=== PATIENT | male | born 1960 | race Caucasian/White ===

== ENCOUNTER 2018-11-08 12:38 | Inpatient (IN) | payer BC, MEDICAID ==
[2018-11-08 13:14] LABS: ABS Basophils 0.1 10^3/ul (0-0.2); ABS Eosinophils 0.3 10^3/ul (0-0.6); ABS Lymphocytes 1.2 10^3/ul (1.0-4.8); ABS Monocytes 1.4 10^3/ul (0-0.8); Eosinophil % 2.8 %; Hematocrit 42 % (42-52); Hemoglobin 14.1 g/dL (14.0-18.0); Lymphocyte % 10.6 %; Mean Corpuscular HGB Conc 34 g/dL (31-36); Mean Corpuscular Hemoglobin 29 pg (27-31); Mean Corpuscular Volume 86 fL (80-94); Mean Platelet Volume 7.8 fL (7.4-10.4); Platelet Count 203 10^3/uL (150-450); Red Blood Count 4.89 10^6 /uL (4.18-5.48); Red Cell Distribution Width 14 % (10-15); White Blood Count 10.9 10^3/uL (3.5-10.8)
[2018-11-08 13:22] LABS: INR 0.86 (0.82-1.09)
--- NOTE | 2018-11-08 13:22 | ED ---
Dizziness - HPI Summary HPI Summary: Pt is a 58 y/o M presenting to the ED with a chief complaint of weakness. He states he has been through a decent amount of stress recently, [place], and he has experienced fatigue and weakness. This is accompanied by indigestion, heartburn, lightheadedness, near syncope, nausea , vomiting, and constipation. He denies urinary sx. Sitting up alleviates sx. - History Of Current Complaint Chief Complaint: EDChestPainROMI Stated Complaint: "VOMITING/DIZZINESS PER PT" Time Seen by Provider: 11/08/18 12:51 Hx Obtained From: Patient Onset/Duration: Still Present, Gradually Timing: Weeks Severity Initially: Moderate Severity Currently: Moderate Character: Lightheaded, Weak Aggravating Factor(s): Nothing Alleviating Factor(s): Other - sitting up Associated Signs And Symptoms: Positive: Nausea, Vomiting - Allergies/Home Medications Allergies/Adverse Reactions: Allergies Allergy/AdvReac Type Severity Reaction Status Date / Time No Known Allergies Allergy Verified 11/08/18 12:48 Home Medications: Home Medications Aspirin [Aspirin EC] 81 mg PO DAILY 11/08/18 [History Confirmed 11/08/18] Lisinopril 40 mg PO DAILY 11/08/18 [History Confirmed 11/08/18] amLODIPine TAB* [Norvasc 5 mg TAB*] 10 mg PO DAILY 11/08/18 [History Confirmed 11/08/18] hydrALAZINE TAB* [Apresoline TAB*] 12.5 mg PO DAILY 11/08/18 [History Confirmed 11/08/18] metFORMIN* [Glucophage 500 MG TAB *] 1,000 mg PO DAILY 11/08/18 [History Confirmed 11/08/18] PMH/Surg Hx/FS Hx/Imm Hx Previously Healthy: Yes Endocrine/Hematology History: Reports: Hx Diabetes Cardiovascular History: Reports: Hx Hypertension Infectious Disease History: No Infectious Disease History: Denies: Traveled Outside the [place] in Last 30 Days - Family History Known Family History: Positive: Diabetes - maternal Negative: Cardiac Disease, Hypertension - Social History Alcohol Use: Occasionally Hx Substance Use: Yes Substance Use Type: Reports: Marijuana Hx Tobacco Use: Yes Smoking Status (MU): Former Smoker Review of Systems Positive: Fatigue Positive: Vomiting, Nausea, Other - constipation, indigestion Positive: no symptoms reported Neurological: Other - lightheadedness Positive: Weakness, Syncope - near syncope All Other Systems Reviewed And Are Negative: Yes Physical Exam - Summary Physical Exam Summary: Appearance: The patient is well-nourished in no acute distress and in no acute pain. Skin: The skin is warm and dry and skin color reflects adequate perfusion. HEENT: The head is normocephalic and atraumatic. The pupils are equal and reactive. The conjunctivae are clear and without drainage. Nares are patent and without drainage. Mouth reveals moist mucous membranes and the throat is without erythema and exudate. The external ears are intact. The ear canals are patent and without drainage. The tympanic membranes are intact. Neck: The neck is supple with full range of motion and non-tender. There are no carotid bruits. There is no neck vein distension. Respiratory: Chest is non-tender. Lungs are clear to auscultation and breath sounds are symmetrical and equal. Cardiovascular: Heart is regular rate and rhythm. There is no murmur or rub auscultated. There is no peripheral edema and pulses are symmetrical and equal. Abdomen: The abdomen is soft and there is mild RUQ tenderness. There are normal bowel sounds heard in all four quadrants and there is no organomegaly palpated. Musculoskeletal: There is no back tenderness noted. Extremities are non-tender with full range of motion. There is good capillary refill. There is no peripheral edema or calf tenderness elicited. Neurological: Patient is alert and oriented to person, place and time. The patient has symmetrical motor strength in all four extremities. Cranial nerves are grossly intact. Deep tendon reflexes are symmetrical and equal in all four extremities. Psychiatric: The patient has an appropriate affect and does not exhibit any anxiety or depression. Triage Information Reviewed: Yes Vital Signs On Initial Exam: Initial Vitals Temp Pulse Resp BP Pulse Ox 98.8 F 88 16 129/89 98 11/08/18 12:40 11/08/18 12:40 11/08/18 12:40 11/08/18 12:40 11/08/18 12:40 Vital Signs Reviewed: Yes Diagnostics - Vital Signs Vital Signs Temp Pulse Resp BP Pulse Ox 11/08/18 12:40 98.8 F 88 16 129/89 98 - Laboratory Lab Results: Lab Results 11/08/18 Range/Units 13:05 WBC 10.9 H (3.5-10.8) 10^3/uL RBC 4.89 (4.18-5.48) 10^6 /uL Hgb 14.1 (14.0-18.0) g/dL Hct 42 (42-52) % MCV 86 (80-94) fL MCH 29 (27-31) pg MCHC 34 (31-36) g/dL RDW 14 (10-15) % Plt Count 203 (150-450) 10^3/uL MPV 7.8 (7.4-10.4) fL Neut % (Auto) 73.0 % Lymph % (Auto) 10.6 % [place] % (Auto) 12.8 % Eos % (Auto) 2.8 % Baso % (Auto) 0.8 % Absolute Neuts (auto) 8.0 H (1.5-7.7) 10^3/ul Absolute Lymphs (auto) 1.2 (1.0-4.8) 10^3/ul Absolute Monos (auto) 1.4 H (0-0.8) 10^3/ul Absolute Eos (auto) 0.3 (0-0.6) 10^3/ul Absolute Basos (auto) 0.1 (0-0.2) 10^3/ul Absolute Nucleated RBC 0.0 10^3/ul Nucleated RBC % 0.0 Result Diagrams: 11/08/18 13:05 11/08/18 13:05 Lab Statement: Any lab studies that have been ordered have been reviewed, and results considered in the medical decision making process. - Radiology CXR Radiology Interpretation Completed By: Radiologist Summary of Radiographic Findings: No acute cardiopulmonary process by radiograph. ED physician has reviewed this report. Dizzy Course/Dx - Course Course Of Treatment: Mr. Michaud is primarily complaining of severe fatigue. He is interfering with any activity and has worsened in the last 24 hours. He was nontoxic in appearance with stable vitals. He was found to have acute renal failure. He had previously been seen for the first time by Dr. Li and was found to have some protein in his urine. He had been referred to a cost manager which she has not seen yet. I spoke with the hospitalist about admission. - Diagnoses Provider Diagnoses: Acute renal failure - Provider Notifications Discussed Care Of Patient With: Ez Berrios Time Discussed With Above Provider: 16:00 Instructed by Provider To: Admit As Inpatient Discharge - Sign-Out/Discharge Documenting (check all that apply): Patient Departure - Discharge Plan Condition: Stable Disposition: ADMITTED TO [facility] - Billing Disposition and Condition Condition: STABLE Disposition: Admitted to [facility] - Attestation Statements Document Initiated by Chrisibe: Yes Documenting Scribe: Estefania Raza Provider For Whom Chrisibe is Documenting (Include Credential): John Piedra MD. Scribe Attestation: Estefania Worerll, donovaned for John Piedra MD. on 11/08/18 at 1822. Scribe Documentation Reviewed: Yes Provider Attestation: The documentation as recorded by the Estefania rodrigez accurately reflects the service I personally performed and the decisions made by , John Piedra MD. Status of Scribe Document: Viewed Consult Consult: 1600 - Dr. Berrios has accepted the pt to [facility].
[2018-11-08 13:32] LABS: Albumin 4.5 g/dL (3.2-5.2); Albumin/Globulin Ratio 1.7 (1-3); BUN/Creatinine Ratio 9.7 (8-20); Calcium 10.4 mg/dL (8.6-10.3); EGFR African American 21.9 (>60); EGFR Non-African American 18.1 (>60); Globulin 2.6 g/dL (2-4); Potassium 3.8 mmol/L (3.5-5.0); Total Bilirubin 0.9 mg/dL (0.2-1.0); Total Protein 7.1 g/dL (6.4-8.9)
[2018-11-08 13:34] LABS: Troponin I 0.01 ng/mL (<0.04)
[2018-11-08 13:41] LABS: C Reactive Protein 7.93 mg/L (<8.01)
[2018-11-08 13:54] LABS: Urine Appearance Cloudy; Urine Bacteria 1+ (Absent); Urine Bilirubin Negative (Negative); Urine Blood 2+ (Negative); Urine Color Yellow; Urine Glucose 3+(>=500 mg/dL) (Negative); Urine Ketones Negative (Negative); Urine Nitrite Negative (Negative); Urine Protein 2+(100 mg/dL) (Negative); Urine Red Blood Cell 1+(3-5/hpf) (Absent); Urine Squamous Epithelial Cell Present (Absent); Urine Urobilinogen Negative (Negative); Urine White Blood Cell Trace(0-5/hpf) (Absent)
[2018-11-08] MEDS ORDERED: Ondansetron INJ* 2 MG/ML VIAL IV ONE (14:02)
[2018-11-08] MEDS ORDERED: NS 0.9% 1000 ML** 1,000 ML IV.FLUID IV ONE (16:00)
[2018-11-08] MEDS ORDERED: Pantoprazole IV* 40 MG IV SCH (16:00)
[2018-11-08] MEDS ORDERED: Dextrose 50% Syringe 50 ML* 25 GM/50 ML SYRINGE IV PUSH PRN (16:01)
--- NOTE | 2018-11-08 16:12 | ADMNOTE ---
Subjective Date of Service: 11/08/18 Interval History: ADMISSION HISTORY AND PHYSICAL EXAM: Allergies Allergy/AdvReac Type Severity Reaction Status Date / Time No Known Allergies Allergy Verified 11/08/18 12:48 Home Medications Medication Instructions Recorded Confirmed Type Aspirin [Aspirin EC] 81 mg PO DAILY 11/08/18 11/08/18 History Lisinopril 40 mg PO DAILY 11/08/18 11/08/18 History amLODIPine TAB* [Norvasc 5 mg TAB*] 10 mg PO DAILY 11/08/18 11/08/18 History hydrALAZINE TAB* [Apresoline TAB*] 12.5 mg PO DAILY 11/08/18 11/08/18 History metFORMIN* [Glucophage 500 MG TAB 1,000 mg PO DAILY 11/08/18 11/08/18 History *] HPI: The patient states he has nausea off and on for ? months or longer. Today he had emesis x 5 in 1 occasion. He did not take any of his meds this AM because he was too sick. No abd pain. C/O weakness and fatigue. Pain R lower lateral rib for several days, no recalled significant trauma. Family History: Findings - unremarkable. Social History: Findings - Smoker, no alcohol abuse. Lives with his and the younger of his 2 children. Unemployed. is his SDM. Past Medical History: Findings - Back surgery x 2, eye muscle surgery. DM x 20 yrs Review of Systems - Measurements Intake and Output: Intake and Output Last 24 Hours 11/06/18 11/07/18 11/08/18 11/09/18 06:59 06:59 06:59 06:59 Weight 190 lb - Review of Systems Constitutional Symptoms: Negative: Weight Gain, Weight Loss, Weakness, Fatigue, Fever, Night Sweats, Unexplained Falls, Other Dermatology: Positive: Normal HEENT: Positive: Normal Eyes: Positive: Normal Thyroid: Positive: Normal Pulmonary: Positive: Normal Cardiology: Positive: Normal Gastroenterology: Positive: Nausea, Vomiting Genital - Urinary: Positive: Normal Genitourinary - Male: Negative: Prostatism, Erectile Dysfunction, Family Hx of Prostate Cancer, Other Musculoskeletal: Positive: Low Back Pain Endocrinology: Positive: Diabetes Mellitus Hematologic/Lymphatic: Negative: Anemia, Easy Bruising, Hx Leukemia, Hx Lymphoma, Use of Anticoagulant, Use of Antiplatelet Drugs, Other Neurology: Positive: Normal Psychiatry: Positive: Normal Allergic/Immunologic: Negative: Hx Anaphylaxis, Hx Angioedema, Hx Environmental, Hx Seasonal, Asthma, Hx HIV, Immunocompromise, Swollen Glands LymphNodes, Other Objective Active Medications: Amlodipine Besylate (Norvasc Tab*) 10 mg PO DAILY [facility] Dextrose (D50w Syringe 50 Ml*) 12.5 gm IV PUSH .FOR FS < 60 - SS PRN PRN Reason: FS < 60 Sodium Chloride (Ns 0.9% 1000 Ml) 1,000 mls @ 125 mls/hr IV PER RATE [facility] Insulin Human Lispro (Humalog*) 0 units SUBCUT ACHS [facility]; Protocol Ondansetron HCl (Zofran Inj*) 4 mg IV Q4H PRN PRN Reason: NAUSEA Pantoprazole Sodium (Protonix Iv*) 40 mg IV Q12H [facility] Polyethylene Glycol/Electrolytes (Miralax*) 17 gm PO 0800,2100 [facility] Vital Signs - 8 hr 11/08/18 11/08/18 11/08/18 12:40 13:02 13:03 Temperature 98.8 F Pulse Rate 88 70 Respiratory 16 30 13 Rate Blood Pressure 129/89 160/93 (mmHg) O2 Sat by Pulse 98 100 Oximetry 11/08/18 11/08/18 11/08/18 13:33 14:00 14:03 Temperature Pulse Rate 65 70 Respiratory 19 22 36 Rate Blood Pressure 131/78 155/81 (mmHg) O2 Sat by Pulse 100 100 Oximetry 11/08/18 14:39 Temperature Pulse Rate 60 Respiratory 11 Rate Blood Pressure 135/71 (mmHg) O2 Sat by Pulse 98 Oximetry Oxygen Devices in Use Now: None Appearance: Alert, supine on ED stretcher. In good spirits. Looks comfortable. Eyes: No Scleral Icterus Respiratory: Symmetrical Chest Expansion and Respiratory Effort, Clear to Auscultation, Clear to Percussion, - - Very tender R lower lateral ribs. Cardiovascular: NL Sounds; No Murmurs; No JVD, RRR, No Edema, - Abdominal: NL Sounds; No Tenderness; No Distention, No Hepatosplenomegaly, - Extremities: No Edema, No Clubbing, Cyanosis, - Skin: No Rash or Ulcers, No Nodules or Sclerosis, - Neurological: Alert and Oriented x 3, NL Sensation Result Diagrams: 11/08/18 13:05 11/08/18 13:05 Additional Lab and Data: Lab Results 11/08/18 Range/Units 13:05 WBC 10.9 H (3.5-10.8) 10^3/uL RBC 4.89 (4.18-5.48) 10^6 /uL Hgb 14.1 (14.0-18.0) g/dL Hct 42 (42-52) % MCV 86 (80-94) fL MCH 29 (27-31) pg MCHC 34 (31-36) g/dL RDW 14 (10-15) % Plt Count 203 (150-450) 10^3/uL MPV 7.8 (7.4-10.4) fL Neut % (Auto) 73.0 % Lymph % (Auto) 10.6 % Jerome % (Auto) 12.8 % Eos % (Auto) 2.8 % Baso % (Auto) 0.8 % Absolute Neuts (auto) 8.0 H (1.5-7.7) 10^3/ul Absolute Lymphs (auto) 1.2 (1.0-4.8) 10^3/ul Absolute Monos (auto) 1.4 H (0-0.8) 10^3/ul Absolute Eos (auto) 0.3 (0-0.6) 10^3/ul Absolute Basos (auto) 0.1 (0-0.2) 10^3/ul Absolute Nucleated RBC 0.0 10^3/ul Nucleated RBC % 0.0 Assess/Plan/Problems-Billing Assessment: - Patient Problems (1) Acute renal failure Current Visit: Yes Status: Acute Comment: ? related to dehydration. Pt denies any NSAID use other red 1 ASA daily. Urine creat/K+/Na+ levels. IV fluids, repeat BMP 11/09. US kidneys. Verbal report that bladder urine volume about 20 ml. (2) HTN (hypertension) Current Visit: Yes Status: Acute Code(s): I10 - ESSENTIAL (PRIMARY) HYPERTENSION SNOMED Code(s): 49304723 Comment: Hold lisinopril and hydralazine, resume amlodipine 11/09. (3) Tobacco use Current Visit: Yes Status: Acute Code(s): Z72.0 - TOBACCO USE SNOMED Code( s): 290913427 Comment: Pt advised to quit smoking and avoid second hand smoke. He declined NRT 11/08. (4) Diabetes Current Visit: Yes Status: Acute Code(s): E11.9 - TYPE 2 DIABETES MELLITUS WITHOUT COMPLICATIONS SNOMED Code(s): 40637829 Comment: Hold metformin. Lispro by achs. A1C ordered for 11/09. (5) Nausea and vomiting Current Visit: Yes Status: Acute Code(s): R11.2 - NAUSEA WITH VOMITING, UNSPECIFIED SNOMED Code(s): 10873301 Comment: IV PPI ordered. Discussed with Dr. Roy. Consult/? endoscopy 11/09. NPO after MN.
--- NOTE | 2018-11-08 16:23 | PN ---
Subjective Date of Service: 11/08/18 Interval History: See admission note. Family History: Findings - unremarkable. Social History: Findings - Smoker, no alcohol abuse. Lives with his and the younger of his 2 children. Unemployed. is his SDM. Past Medical History: Findings - Back surgery x 2, eye muscle surgery. DM x 20 yrs Objective Active Medications: Amlodipine Besylate (Norvasc Tab*) 10 mg PO DAILY [facility] Dextrose (D50w Syringe 50 Ml*) 12.5 gm IV PUSH .FOR FS < 60 - SS PRN PRN Reason: FS < 60 Sodium Chloride (Ns 0.9% 1000 Ml) 1,000 mls @ 125 mls/hr IV PER RATE [facility] Insulin Human Lispro (Humalog*) 0 units SUBCUT ACHS [facility]; Protocol Ondansetron HCl (Zofran Inj*) 4 mg IV Q4H PRN PRN Reason: NAUSEA Pantoprazole Sodium (Protonix Iv*) 40 mg IV Q12H [facility] Polyethylene Glycol/Electrolytes (Miralax*) 17 gm PO 0800,2100 [facility] Vital Signs - 8 hr 11/08/18 11/08/18 11/08/18 12:40 13:02 13:03 Temperature 98.8 F Pulse Rate 88 70 Respiratory 16 30 13 Rate Blood Pressure 129/89 160/93 (mmHg) O2 Sat by Pulse 98 100 Oximetry 11/08/18 11/08/18 11/08/18 13:33 14:00 14:03 Temperature Pulse Rate 65 70 Respiratory 19 22 36 Rate Blood Pressure 131/78 155/81 (mmHg) O2 Sat by Pulse 100 100 Oximetry 11/08/18 14:39 Temperature Pulse Rate 60 Respiratory 11 Rate Blood Pressure 135/71 (mmHg) O2 Sat by Pulse 98 Oximetry Oxygen Devices in Use Now: None Result Diagrams: 11/08/18 13:05 11/08/18 13:05 Additional Lab and Data: Lab Results 11/08/18 Range/Units 13:05 WBC 10.9 H (3.5-10.8) 10^3/uL RBC 4.89 (4.18-5.48) 10^6 /uL Hgb 14.1 (14.0-18.0) g/dL Hct 42 (42-52) % MCV 86 (80-94) fL MCH 29 (27-31) pg MCHC 34 (31-36) g/dL RDW 14 (10-15) % Plt Count 203 (150-450) 10^3/uL MPV 7.8 (7.4-10.4) fL Neut % (Auto) 73.0 % Lymph % (Auto) 10.6 % [place] % (Auto) 12.8 % Eos % (Auto) 2.8 % Baso % (Auto) 0.8 % Absolute Neuts (auto) 8.0 H (1.5-7.7) 10^3/ul Absolute Lymphs (auto) 1.2 (1.0-4.8) 10^3/ul Absolute Monos (auto) 1.4 H (0-0.8) 10^3/ul Absolute Eos (auto) 0.3 (0-0.6) 10^3/ul Absolute Basos (auto) 0.1 (0-0.2) 10^3/ul Absolute Nucleated RBC 0.0 10^3/ul Nucleated RBC % 0.0 Assess/Plan/Problems-Billing Assessment: - Patient Problems (1) Acute renal failure Current Visit: Yes Status: Acute Comment: ? related to dehydration. Pt denies any NSAID use other red 1 ASA daily. Urine creat/K+/Na+ levels. IV fluids, repeat BMP 11/09. US kidneys. Verbal report that bladder urine volume about 20 ml. (2) HTN (hypertension) Current Visit: Yes Status: Acute Code(s): I10 - ESSENTIAL (PRIMARY) HYPERTENSION SNOMED Code(s): 67565681 Comment: Hold lisinopril and hydralazine, resume amlodipine 11/09. (3) Tobacco use Current Visit: Yes Status: Acute Code(s): Z72.0 - TOBACCO USE SNOMED Code( s): 212242089 Comment: Pt advised to quit smoking and avoid second hand smoke. He declined NRT 11/08. (4) Diabetes Current Visit: Yes Status: Acute Code(s): E11.9 - TYPE 2 DIABETES MELLITUS WITHOUT COMPLICATIONS SNOMED Code(s): 99879432 Comment: Hold metformin. Lispro by achs. A1C ordered for 11/09. (5) Nausea and vomiting Current Visit: Yes Status: Acute Code(s): R11.2 - NAUSEA WITH VOMITING, UNSPECIFIED SNOMED Code(s): 20644544 Comment: IV PPI ordered. Discussed with Dr. Roy. Consult/? endoscopy 11/09. NPO after MN. (6) Right rib fracture Current Visit: Yes Status: Acute Code(s): S22.31XA - FRACTURE OF ONE RIB, RIGHT SIDE, INIT FOR CLOS FX SNOMED Code(s): 58913300 Comment: Likely due to coughing spasm. Note high vit D level. Pt not requesting analgesics, likes to avoid them.
[2018-11-08] MEDS: Ondansetron INJ* 2 MG/ML VIAL IV PRN (16:58)
[2018-11-08] MEDS: Polyethylene Glycol 3350* 17 GM PACKET PO SCH ×2 (17:49→20:06)
[2018-11-08] MEDS: Insulin LISPRO* 1 UNITS UNIT SUBCUT SCH ×2 (17:57→20:06)
[2018-11-08] MEDS: NS 0.9% 1000 ML** 1,000 ML IV SCH (19:25)
[2018-11-08] MEDS: Pantoprazole IV* 40 MG IV SCH (20:06)
[2018-11-09] MEDS: NS 0.9% 1000 ML** 1,000 ML IV SCH ×3 (03:40→18:40)
[2018-11-09 05:39] LABS: BUN/Creatinine Ratio 8.6 (8-20); Calcium 9.8 mg/dL (8.6-10.3); EGFR African American 14.5 (>60); Potassium 3.7 mmol/L (3.5-5.0)
[2018-11-09] MEDS: Insulin LISPRO* 1 UNITS UNIT SUBCUT SCH ×4 (08:19→20:37)
[2018-11-09] MEDS: Polyethylene Glycol 3350* 17 GM PACKET PO SCH ×2 (08:19→20:27)
[2018-11-09] MEDS: amLODIPine TAB* 5 MG PO SCH (09:07)
[2018-11-09] MEDS: Pantoprazole IV* 40 MG IV SCH ×2 (09:08→20:25)
[2018-11-09 09:50] LABS: Urine Potassium Concentration 13.8 mmol/L
[2018-11-09 09:58] LABS: Urine Creatinine Concentration 63.05 mg/dL
[2018-11-09] MEDS: Nicotine PATCH 21 MG/24 HR* PATCH TRANSDERM SCH (11:31)
--- NOTE | 2018-11-09 16:11 | PN ---
Subjective Date of Service: 11/09/18 Interval History: Mr. Michaud is feeling okay this morning. He is upset that he cannot eat. He is urinating well. C/o generalized weakness which has been going on for months ( maybe 6 months?). He denies CP, SOB, N/V. No concerns from nursing, though RN did call to request a nicotine patch order. Family History: Unchanged from Admission Social History: Unchanged from Admission Past Medical History: Unchanged from Admission Objective Active Medications: Amlodipine Besylate (Norvasc Tab*) 10 mg PO DAILY [facility] Dextrose (D50w Syringe 50 Ml*) 12.5 gm IV PUSH .FOR FS < 60 - SS PRN FS < 60 Sodium Chloride (Ns 0.9% 1000 Ml) 1,000 mls @ 125 mls/hr IV PER RATE [facility] Insulin Human Lispro (Humalog*) 0 units SUBCUT ACHS [facility]; Protocol Nicotine (Nicotine Patch 21 Mg/24 Hr*) 1 patch TRANSDERM DAILY@0800 [facility] Ondansetron HCl (Zofran Inj*) 4 mg IV Q4H PRN NAUSEA Pantoprazole Sodium (Protonix Iv*) 40 mg IV 0800,2000 [facility] Polyethylene Glycol/Electrolytes (Miralax*) 17 gm PO 0800,2100 [facility] Vital Signs - 8 hr 11/09/18 11/09/18 11:13 15:03 Temperature 98.2 F 98.5 F Pulse Rate 61 60 Respiratory 18 18 Rate Blood Pressure 141/65 145/63 (mmHg) O2 Sat by Pulse 100 100 Oximetry Oxygen Devices in Use Now: None Appearance: Middle-aged male laying in bed in NAD Eyes: No Scleral Icterus Ears/Nose/Mouth/Throat: Mucous Membranes Moist Neck: NL Appearance and Movements; NL JVP, Trachea Midline Respiratory: Symmetrical Chest Expansion and Respiratory Effort, Clear to Auscultation Cardiovascular: NL Sounds; No Murmurs; No JVD, RRR Abdominal: NL Sounds; No Tenderness; No Distention Extremities: No Edema Neurological: Alert and Oriented x 3 - Poor historian Lines/Tubes/Other Access: Clean, Dry and Intact Peripheral IV Nutrition: Taking PO's Result Diagrams: 11/08/18 13:05 11/09/18 05:02 Assess/Plan/Problems-Billing Assessment: Mr. Michaud is a 58 yo M with PMH of HTN and DM2 who presented to the ED with c/o N/V and was found to have ARF. - Patient Problems (1) Acute renal failure Comment: - Creatinine 3.5 on admission, now up to 4.99 today but still producing sufficient urine - Possibly secondary to hypovolemia - FENa 2.2% indicating intra-renal source - Appreciate Nephrology consult; suspects this is secondary to hypovolemia and recommends continuing current treatment - Continue IVF (2) Nausea and vomiting Code(s): R11.2 - NAUSEA WITH VOMITING, UNSPECIFIED Comment: - Unclear how long this has been going on; patient reports months of N/V, but states it has gotten much worse in the last 1-2 weeks - Appreciate GI consult; NPO for possible EGD - Continue pantoprazole, Zofran (3) Right rib fracture Code(s): S22.31XA - FRACTURE OF ONE RIB, RIGHT SIDE, INIT FOR CLOS FX Comment : - Likely due to coughing spasm - Continue Tylenol (4) Diabetes Code(s): E11.9 - TYPE 2 DIABETES MELLITUS WITHOUT COMPLICATIONS Comment: - A1c 7.8% - Hold metformin - Continue Lispro SS (5) HTN (hypertension) Code(s): I10 - ESSENTIAL (PRIMARY) HYPERTENSION Comment: - Normotensive, SBP 110-140s - Hold lisinopril, hydralazine - Continue amlodipine (6) Tobacco use Code(s): Z72.0 - TOBACCO USE Comment: - Encourage cessation - Continue nicotine patch (7) DVT prophylaxis Code(s): Z29.9 - ENCOUNTER FOR PROPHYLACTIC MEASURES, UNSPECIFIED Comment: - Ambulation (8) Full code status Code(s): Z78.9 - OTHER SPECIFIED HEALTH STATUS Comment: Status and Disposition: Inpatient. Anticipate d/c home when medically stable. Attending: Vani Shabazz
[2018-11-09] MEDS ORDERED: Acetaminophen TAB* 325 MG PO PRN (16:18)
--- NOTE | 2018-11-09 18:09 | CONS ---
CC: Dr. Alexandra * CONSULTATION REPORT: DATE OF CONSULT: 11/09/18 REQUESTING PHYSICIAN: Dr. Berrios. INDICATION: Nausea and vomiting. NARRATIVE: Mr. Michaud is a very pleasant 58-year-old gentleman who was admitted to the hospital yesterday. He states that he was feeling extremely weak, really could not ambulate very far without difficulty, was feeling like he was going to pass out and decided to present to the emergency room. In the emergency room, he was found to be in acute renal failure that is being worked up as we speak. Additionally, he states that he has been experiencing nausea and vomiting for many months. He states that he usually vomits partially digested food, for instance. Friday night, he ate a bowl of rice at around 9 p.m. and then somewhere between 4 and 5 a.m., he awoke and vomited a large portion of the rice. He denies any blood in the vomitus. He rarely has abdominal pain. He does note that constipation worsens his nausea and vomiting. If his colon is emptied, he has much less nausea and vomiting. He is up-to-date on colonoscopy. He tells me he just had a colonoscopy within the past year, a few polyps were found. No family history of colorectal cancer or upper GI malignancies. No unintentional weight loss. No headaches. PAST MEDICAL HISTORY: Significant for chronic back pain, diabetes, hypertension. PAST SURGICAL HISTORY: Includes back surgery x2, eye surgery. MEDICATIONS: Include: 1. Aspirin. 2. Lisinopril. 3. Amlodipine. 4. Hydralazine. 5. Metformin. ALLERGIES: No known drug allergies. SOCIAL HISTORY: He rarely drinks alcohol. He is a smoker; I counseled him against this. REVIEW OF SYSTEMS: Twelve systems were reviewed and other than that mentioned in the HPI were unremarkable. PHYSICAL EXAM: Temperature is 98.5, blood pressure is 145/63, O2 sat is 100%, respiratory rate of 18, pulse is 60. General: Well-appearing male, in no apparent distress, alert, oriented, pleasant, fluent. HEENT: Mucous membranes are moist, without lesions, ulcers or exudate. Neck is supple. Trachea is midline. Head is normocephalic, atraumatic. Heart: Regular rate and rhythm. No murmurs, rubs or gallops. Lungs: Clear to auscultation bilaterally. No wheezes, rales or rhonchi. Abdomen: Positive bowel sounds; however, hypoactive , soft, nontender, nondistended. No hepatosplenomegaly, masses, rebound, or guarding. Skin is warm and dry. DIAGNOSTIC STUDIES/LAB DATA: Of note, white count is 10.9, hemoglobin is 14.1, platelets of 203. INR is 0.86. BUN is 43, creatinine is 4.99, glucose is 151. Hemoglobin A1c is 7.8. ASSESSMENT AND PLAN: This is a pleasant 58-year-old gentleman with nausea, vomiting, and constipation. Regarding his constipation, he is up-to-date on colonoscopies. I would recommend that he use MiraLAX on a daily basis. Regarding his nausea and vomiting given his own diabetes history and the fact that he vomited partially digested food, I wonder if he could have gastroparesis. I will make arrangements for gastric emptying test hopefully tomorrow. [id number]/CPS #: [id number] MTDD
[2018-11-09] MEDS: Nicotine Patch Removal NOTE FOLLOW UP SCH (20:37)
[2018-11-10] MEDS: NS 0.9% 1000 ML** 1,000 ML IV SCH ×3 (02:10→22:15)
[2018-11-10 07:19] LABS: BUN/Creatinine Ratio 8.2 (8-20); Calcium 9.3 mg/dL (8.6-10.3); EGFR African American 10.6 (>60); EGFR Non-African American 8.8 (>60)
[2018-11-10] MEDS: Insulin LISPRO* 1 UNITS UNIT SUBCUT SCH ×4 (08:01→20:12)
[2018-11-10] MEDS: Polyethylene Glycol 3350* 17 GM PACKET PO SCH ×2 (08:30→19:58)
[2018-11-10] MEDS: Nicotine PATCH 21 MG/24 HR* PATCH TRANSDERM SCH (08:51)
[2018-11-10] MEDS: Pantoprazole IV* 40 MG IV SCH ×2 (08:53→20:02)
[2018-11-10] MEDS: amLODIPine TAB* 5 MG PO SCH (12:19)
--- NOTE | 2018-11-10 16:17 | PN ---
Subjective Date of Service: 11/10/18 Interval History: Mr. Michaud is feeling well this morning. He had an uneventful night. He does remember that he had a medication injected into his eye within the last few weeks up in [place], though he has been on this medication for quite some time. He is urinating well, without difficulty, and a normal amount. Denies CP, SOB, N/V. No concerns from nursing. Family History: Unchanged from Admission Social History: Unchanged from Admission Past Medical History: Unchanged from Admission Objective Active Medications: Acetaminophen (Tylenol Tab*) 650 mg PO Q4H PRN PAIN - MILD Amlodipine Besylate (Norvasc Tab*) 10 mg PO DAILY [facility] Dextrose (D50w Syringe 50 Ml*) 12.5 gm IV PUSH .FOR FS < 60 - SS PRN FS < 60 Sodium Chloride (Ns 0.9% 1000 Ml) 1,000 mls @ 125 mls/hr IV PER RATE [facility] Insulin Human Lispro (Humalog*) 0 units SUBCUT ACHS [facility]; Protocol Nicotine (Nicotine Patch 21 Mg/24 Hr*) 1 patch TRANSDERM DAILY@0800 [facility] Ondansetron HCl (Zofran Inj*) 4 mg IV Q4H PRN NAUSEA Pantoprazole Sodium (Protonix Iv*) 40 mg IV 0800,1999 [facility] Pharmacy Profile Note (Nicotine Patch Removal Note*) 1 note FOLLOW UP 2099 [facility] Polyethylene Glycol/Electrolytes (Miralax*) 17 gm PO 0800,2099 [facility] Vital Signs - 8 hr 11/10/18 11/10/18 11/10/18 09:00 13:00 15:05 Temperature 98 F 98 F Pulse Rate 52 50 Respiratory 16 16 16 Rate Blood Pressure 153/66 148/61 (mmHg) O2 Sat by Pulse 98 99 Oximetry Oxygen Devices in Use Now: None Appearance: Middle-aged male laying in bed in NAD Eyes: No Scleral Icterus Ears/Nose/Mouth/Throat: Mucous Membranes Moist Neck: NL Appearance and Movements; NL JVP, Trachea Midline Respiratory: Symmetrical Chest Expansion and Respiratory Effort, Clear to Auscultation Cardiovascular: NL Sounds; No Murmurs; No JVD, RRR Abdominal: NL Sounds; No Tenderness; No Distention Extremities: No Edema Neurological: Alert and Oriented x 3 Lines/Tubes/Other Access: Clean, Dry and Intact Peripheral IV Nutrition: Taking PO's Result Diagrams: 11/08/18 13:05 11/10/18 05:39 Assess/Plan/Problems-Billing Assessment: Mr. Michaud is a 58 yo M with PMH of HTN and DM2 who presented to the ED with c/o N/V and was found to have ARF. - Patient Problems (1) Acute renal failure Comment: - Creatinine still trending up, but producing adequate amount of urine and electrolytes are normal - Possibly secondary to hypovolemia - FENa 2.2% indicating intra-renal source - Appreciate Nephrology consult; suspects this is secondary to hypovolemia and recommends continuing current treatment - Continue IVF (2) Nausea and vomiting Code(s): R11.2 - NAUSEA WITH VOMITING, UNSPECIFIED Comment: - Unclear how long this has been going on; patient reports months of N/V, but states it has gotten much worse in the last 1-2 weeks - Appreciate GI consult - Gastric emptying study unremarkable - Continue pantoprazole, Zofran (3) Right rib fracture Code(s): S22.31XA - FRACTURE OF ONE RIB, RIGHT SIDE, INIT FOR CLOS FX Comment : - Likely due to coughing spasm - Continue Tylenol (4) Diabetes Code(s): E11.9 - TYPE 2 DIABETES MELLITUS WITHOUT COMPLICATIONS Comment: - A1c 7.8% - Hold metformin - Continue Lispro SS (5) HTN (hypertension) Code(s): I10 - ESSENTIAL (PRIMARY) HYPERTENSION Comment: - Normotensive, SBP 130-150s - Hold lisinopril, hydralazine - Continue amlodipine (6) Tobacco use Code(s): Z72.0 - TOBACCO USE Comment: - Encourage cessation - Continue nicotine patch (7) DVT prophylaxis Code(s): Z29.9 - ENCOUNTER FOR PROPHYLACTIC MEASURES, UNSPECIFIED Comment: - Ambulation (8) Full code status Code(s): Z78.9 - OTHER SPECIFIED HEALTH STATUS Comment: Status and Disposition: Inpatient. Anticipate d/c home when medically stable. Attending: Vani Shabazz
[2018-11-10] MEDS ORDERED: Magnesium Hydroxide LIQ* 30 ML UDC PO PRN (17:22)
[2018-11-10] MEDS ORDERED: Senna TAB 8.6 mg* TAB PO PRN (17:22)
[2018-11-10 18:01] LABS: Anaplasma phagocytophilum Negative (Negative); B. miyamotoi PCR, B Negative (Negative); Babesia divergens/MO-1 Negative (Negative); Babesia ducani Negative (Negative); Ehrlichia chaffeensis Negative (Negative); Ehrlichia ewingii/canis Negative (Negative); Ehrlichia muris eauclairensis Negative (Negative)
[2018-11-10] MEDS: Docusate CAP* 100 MG PO SCH (19:58)
[2018-11-10] MEDS: Nicotine Patch Removal NOTE FOLLOW UP SCH (21:36)
[2018-11-11] MEDS: Ondansetron INJ* 2 MG/ML VIAL IV PRN ×2 (01:37→18:15)
[2018-11-11] MEDS: NS 0.9% 1000 ML** 1,000 ML IV SCH ×2 (06:26→17:11)
[2018-11-11 06:36] LABS: BUN/Creatinine Ratio 8.5 (8-20); Calcium 9.4 mg/dL (8.6-10.3); EGFR African American 8.8 (>60); EGFR Non-African American 7.3 (>60); Potassium 4.2 mmol/L (3.5-5.0)
[2018-11-11] MEDS: Insulin LISPRO* 1 UNITS UNIT SUBCUT SCH ×4 (08:28→21:32)
[2018-11-11] MEDS: Pantoprazole IV* 40 MG IV SCH ×2 (08:29→20:52)
[2018-11-11] MEDS: Nicotine PATCH 21 MG/24 HR* PATCH TRANSDERM SCH (08:29)
[2018-11-11] MEDS: Polyethylene Glycol 3350* 17 GM PACKET PO SCH ×2 (08:51→20:57)
[2018-11-11] MEDS: amLODIPine TAB* 5 MG PO SCH (08:52)
[2018-11-11] MEDS: Docusate CAP* 100 MG PO SCH ×2 (08:52→20:56)
[2018-11-11] MEDS: Sodium Bicarbonate (ANTACID)* 650 MG TAB PO SCH ×2 (11:49→18:26)
--- NOTE | 2018-11-11 15:23 | PN ---
Subjective Date of Service: 11/11/18 Interval History: Patient is feeling at her baseline. Patient denies Oliguria, Hematuria, CP, SOB , Dizziness, F/C, or other pain. Patient had an episode of retching overnight, which he related to overeating the day before. Patient denies current nausea, patient has slight abdominal pain, not reproducible with palpation. Patient states he hasn't been feeling good for 3 weeks and has been feeling very weak and intermittently nauseated. Patient has been vaping and excessive amount and smoking a large amount of marijuana and states these are both new for him. Family History: Unchanged from Admission Social History: Unchanged from Admission Past Medical History: Unchanged from Admission Objective Active Medications: Acetaminophen (Tylenol Tab*) 650 mg PO Q4H PRN PRN Reason: PAIN - MILD Amlodipine Besylate (Norvasc Tab*) 10 mg PO DAILY REPLACED BY [facility] Last Admin: 11/11/18 08:52 Dose: Not Given Dextrose (D50w Syringe 50 Ml*) 12.5 gm IV PUSH .FOR FS < 60 - SS PRN PRN Reason: FS < 60 Docusate Sodium (Colace Cap*) 100 mg PO BID REPLACED BY [facility] Last Admin: 11/11/18 08:52 Dose: Not Given Sodium Chloride (Ns 0.9% 1000 Ml) 1,000 mls @ 125 mls/hr IV PER RATE REPLACED BY [facility] Last Admin: 11/11/18 06:26 Dose: 125 mls/hr Insulin Human Lispro (Humalog*) 0 units SUBCUT ACHS REPLACED BY [facility]; Protocol Last Admin: 11/11/18 08:28 Dose: 1 units Magnesium Hydroxide (Milk Of Magnesia Liq*) 30 ml PO BID PRN PRN Reason: CONSTIPATION Last Admin: 11/10/18 17:53 Dose: 30 ml Nicotine (Nicotine Patch 21 Mg/24 Hr*) 1 patch TRANSDERM DAILY@0800 REPLACED BY [facility] Last Admin: 11/11/18 08:29 Dose: 1 patch Ondansetron HCl (Zofran Inj*) 4 mg IV Q4H PRN PRN Reason: NAUSEA Last Admin: 11/11/18 01:37 Dose: 4 mg Pantoprazole Sodium (Protonix Iv*) 40 mg IV 0800,1999 REPLACED BY [facility] Last Admin: 11/11/18 08:29 Dose: 40 mg Pharmacy Profile Note (Nicotine Patch Removal Note*) 1 note FOLLOW UP 2099 REPL[facility]ED BY [facility] Last Admin: 11/10/18 21:36 Dose: 1 note Polyethylene Glycol/Electrolytes (Miralax*) 17 gm PO 799,2099 REPLACED BY [facility] Last Admin: 11/11/18 08:51 Dose: Not Given Senna (Senokot 8.6 Mg Tab*) 1 tab PO BEDTIME PRN PRN Reason: CONSTIPATION Sodium Bicarbonate (Sodium Bicarbonate (Antacid)*) 650 mg PO AC REPLACED BY [facility] Last Admin: 11/11/18 11:49 Dose: 650 mg Vital Signs - 8 hr 11/11/18 11/11/18 11/11/18 07:31 08:45 11:40 Temperature 97.6 F 98.1 F Pulse Rate 59 59 Respiratory 16 16 17 Rate Blood Pressure 150/62 154/62 (mmHg) O2 Sat by Pulse 97 96 Oximetry Oxygen Devices in Use Now: None Appearance: Patient is a 58yo male who appears stated age and is sitting in the bed in [facility]. Eyes: No Scleral Icterus, PERRLA Ears/Nose/Mouth/Throat: NL Teeth, Lips, Gums, Clear Oropharnyx, Mucous Membranes Moist Neck: NL Appearance and Movements; NL JVP, Trachea Midline Respiratory: Symmetrical Chest Expansion and Respiratory Effort, Clear to Auscultation Cardiovascular: NL Sounds; No Murmurs; No JVD, RRR, No Edema Abdominal: NL Sounds; No Tenderness; No Distention, No Hepatosplenomegaly Lymphatic: No Cervical Adenopathy Extremities: No Edema, No Clubbing, Cyanosis Skin: No Rash or Ulcers, No Nodules or Sclerosis Neurological: Alert and Oriented x 3, NL Sensation, NL Muscle Strength and Tone , - - CN II-XII intact. Result Diagrams: 11/08/18 13:05 11/11/18 06:07 Additional Lab and Data: Lab Results Microbiology and Other Data: Microbiology Assess/Plan/Problems-Billing Assessment: Mr. Michaud is a 58 yo M with PMH of HTN and DM2 who presented to the ED with c/o N/V and was found to have ARF likely due to ATN with a cret which is still trending up. - Patient Problems (1) Acute renal failure Current Visit: Yes Status: Acute Comment: - Creatinine still trending up, but producing adequate amount of urine and electrolytes are mostly normal except for slight acidosis developing - Possibly secondary to hypovolemia causing ATN - FENa 2.2% indicating intra-renal source - Appreciate Nephrology consult; suspects this is secondary to hypovolemia and recommends continuing current treatment - Start Buffering with Bicarbonate - Continue IVF, aim for euvolemia with slightly negative fluid balance at this time. (2) Diabetes Current Visit: Yes Status: Acute Code(s): E11.9 - TYPE 2 DIABETES MELLITUS WITHOUT COMPLICATIONS SNOMED Code(s): 71457349 Comment: - A1c 7.8% - Hold metformin - Continue Lispro SS (3) Full code status Current Visit: Yes Status: Acute Code(s): Z78.9 - OTHER SPECIFIED HEALTH STATUS SNOMED Code(s): 101916259 Comment: (4) HTN (hypertension) Current Visit: Yes Status: Acute Code(s): I10 - ESSENTIAL (PRIMARY) HYPERTENSION SNOMED Code(s): 11277258 Comment: - Normotensive, SBP 130-150s - Hold lisinopril, hydralazine - Continue amlodipine (5) Nausea and vomiting Current Visit: Yes Status: Acute Code(s): R11.2 - NAUSEA WITH VOMITING, UNSPECIFIED SNOMED Code(s): 81190680 Comment: - Unclear how long this has been going on; patient reports months of N/V, but states it has gotten much worse in the last 3 weeks - States it is generally brought on by GERD and coughing. - Appreciate GI consult - Gastric emptying study unremarkable - Continue pantoprazole, Zofran - Continue to monitor, possibly due to ARF, Marijuana, or vaping - Additional studies per GI. (6) Right rib fracture Current Visit: Yes Status: Acute Code(s): S22.31XA - FRACTURE OF ONE RIB, RIGHT SIDE, INIT FOR CLOS FX SNOMED Code(s): 47619544 Comment: - Likely due to coughing spasm - Continue Tylenol (7) Tobacco use Current Visit: Yes Status: Acute Code(s): Z72.0 - TOBACCO USE SNOMED Code( s): 567493450 Comment: - Encourage cessation - Continue nicotine patch - Has been vaping a large amount for last several weeks. (8) DVT prophylaxis Current Visit: Yes Status: Acute Code(s): Z29.9 - ENCOUNTER FOR PROPHYLACTIC MEASURES, UNSPECIFIED SNOMED Code(s): 817377722 Comment: - Ambulation Status and Disposition: Inpatient. Anticipate d/c home when medically stable.
[2018-11-11] MEDS ORDERED: Albuterol/Ipratropium NEB.SOL* Albuterol 2.5 MG/Ipratropium 0.5 MG 3 ML INH ONE (17:27)
[2018-11-11] MEDS ORDERED: Piperacillin/Tazobac ADVAN(*) 3.375 GM in NS 0.9% 100 ML* 100 ML IVPB ONE (17:34)
[2018-11-11] MEDS ORDERED: Zosyn per Pharmacy* NOTE FOLLOW UP SCH (18:00)
[2018-11-11] MEDS ORDERED: Furosemide IV* 10 MG/ML VIAL (40 MG) IV SLOW PU ONE (18:10)
[2018-11-11 18:18] LABS: Urine Appearance Clear; Urine Bacteria 1+ (Absent); Urine Bilirubin Negative (Negative); Urine Blood 2+ (Negative); Urine Color Straw; Urine Glucose 2+(150 mg/dL) (Negative); Urine Ketones Negative (Negative); Urine Nitrite Negative (Negative); Urine Protein 1+(30 mg/dL) (Negative); Urine Red Blood Cell Trace(0-2/hpf) (Absent); Urine Specific Gravity 1.008 (1.010-1.030); Urine Urobilinogen Negative (Negative); Urine White Blood Cell Trace(0-5/hpf) (Absent)
[2018-11-11 18:38] LABS: ABS Basophils 0.1 10^3/ul (0-0.2); ABS Eosinophils 0.1 10^3/ul (0-0.6); ABS Lymphocytes 1.2 10^3/ul (1.0-4.8); ABS Monocytes 1.1 10^3/ul (0-0.8); ABS Neutrophils 8.7 10^3/ul (1.5-7.7); Eosinophil % 1.2 %; Hematocrit 37 % (42-52); Lymphocyte % 10.6 %; Mean Corpuscular HGB Conc 33 g/dL (31-36); Mean Corpuscular Hemoglobin 29 pg (27-31); Mean Corpuscular Volume 88 fL (80-94); Mean Platelet Volume 8.1 fL (7.4-10.4); Platelet Count 177 10^3/uL (150-450); Red Blood Count 4.19 10^6 /uL (4.18-5.48); Red Cell Distribution Width 15 % (10-15); White Blood Count 11.2 10^3/uL (3.5-10.8)
[2018-11-11 18:58] LABS: Troponin I 0.03 ng/mL (<0.04)
[2018-11-11 18:59] LABS: Albumin 3.8 g/dL (3.2-5.2); Albumin/Globulin Ratio 1.5 (1-3); BUN/Creatinine Ratio 8.1 (8-20); Calcium 9.5 mg/dL (8.6-10.3); EGFR African American 8.1 (>60); EGFR Non-African American 6.7 (>60); Globulin 2.6 g/dL (2-4); Potassium 4.2 mmol/L (3.5-5.0); Total Bilirubin 0.8 mg/dL (0.2-1.0); Total Protein 6.4 g/dL (6.4-8.9)
[2018-11-11] MEDS ORDERED: NS 0.9% 100 ML* 100 ML ONE (20:30)
[2018-11-11] MEDS: Nicotine Patch Removal NOTE FOLLOW UP SCH (20:57)
[2018-11-12] MEDS: ZOSYN 3.375 GM Q12H per EXTENDED INFUSION IVPB SCH ×4 (00:58→12:48)
[2018-11-12 05:52] LABS: ABS Basophils 0.1 10^3/ul (0-0.2); ABS Eosinophils 0.1 10^3/ul (0-0.6); ABS Monocytes 0.8 10^3/ul (0-0.8); ABS Neutrophils 7.1 10^3/ul (1.5-7.7); Hematocrit 33 % (42-52); Hemoglobin 11.1 g/dL (14.0-18.0); Lymphocyte % 11.3 %; Mean Corpuscular HGB Conc 34 g/dL (31-36); Mean Corpuscular Hemoglobin 29 pg (27-31); Mean Corpuscular Volume 87 fL (80-94); Mean Platelet Volume 8.2 fL (7.4-10.4); Platelet Count 160 10^3/uL (150-450); Red Blood Count 3.83 10^6 /uL (4.18-5.48); Red Cell Distribution Width 15 % (10-15); White Blood Count 9.2 10^3/uL (3.5-10.8)
[2018-11-12 06:11] LABS: BUN/Creatinine Ratio 8.1 (8-20); Calcium 9.4 mg/dL (8.6-10.3); EGFR African American 7.5 (>60); EGFR Non-African American 6.2 (>60); Magnesium 2.7 mg/dL (1.9-2.7); Phosphorus 5.4 mg/dL (2.5-5.0); Potassium 4.4 mmol/L (3.5-5.0)
[2018-11-12] MEDS: Nicotine PATCH 21 MG/24 HR* PATCH TRANSDERM SCH (08:33)
[2018-11-12] MEDS: amLODIPine TAB* 5 MG PO SCH (08:33)
[2018-11-12] MEDS: Sodium Bicarbonate (ANTACID)* 650 MG TAB PO SCH ×3 (08:33→17:36)
[2018-11-12] MEDS: Docusate CAP* 100 MG PO SCH ×2 (08:33→21:27)
[2018-11-12] MEDS: Pantoprazole IV* 40 MG IV SCH ×2 (08:40→21:21)
[2018-11-12] MEDS: Insulin LISPRO* 1 UNITS UNIT SUBCUT SCH ×4 (10:01→21:22)
[2018-11-12] MEDS: Polyethylene Glycol 3350* 17 GM PACKET PO SCH ×2 (10:02→21:27)
--- NOTE | 2018-11-12 14:01 | PN ---
Subjective Date of Service: 11/12/18 Interval History: Patient is poorly today. Patient has little appetite and is very worried about eating due to vomiting. Patient denies CP, SOB, Dizziness, Wheezing, Diarrhea, or other pain. Patient is making a large amount of urine. Patient denies pain with urination. Patient yesterday had an episode of retching with newly discovered hypoxia at that time. Was started on Antibiotics, given lasix and improved greatly overnight with no residual SOB or hypoxia. Family History: Unchanged from Admission Social History: Unchanged from Admission Past Medical History: Unchanged from Admission Objective Active Medications: Acetaminophen (Tylenol Tab*) 650 mg PO Q4H PRN PRN Reason: PAIN - MILD Amlodipine Besylate (Norvasc Tab*) 10 mg PO DAILY [facility] Last Admin: 11/12/18 08:33 Dose: 10 mg Dextrose (D50w Syringe 50 Ml*) 12.5 gm IV PUSH .FOR FS < 60 - SS PRN PRN Reason: FS < 60 Docusate Sodium (Colace Cap*) 100 mg PO BID [facility] Last Admin: 11/12/18 08:33 Dose: 100 mg Piperacillin Sod/Tazobactam (Sod 3.375 gm/ Sodium Chloride) 100 mls @ 25 mls/ hr IVPB Q12H [facility] Last Admin: 11/12/18 12:48 Dose: 25 mls/hr Insulin Human Lispro (Humalog*) 0 units SUBCUT [facility]; Protocol Last Admin: 11/12/18 12:37 Dose: Not Given Magnesium Hydroxide (Milk Of Magnesia Liq*) 30 ml PO BID PRN PRN Reason: CONSTIPATION Last Admin: 11/10/18 17:53 Dose: 30 ml Nicotine (Nicotine Patch 21 Mg/24 Hr*) 1 patch TRANSDERM DAILY@0800 [facility] Last Admin: 11/12/18 08:33 Dose: 1 patch Ondansetron HCl (Zofran Inj*) 4 mg IV Q4H PRN PRN Reason: NAUSEA Last Admin: 11/11/18 18:15 Dose: 4 mg Pantoprazole Sodium (Protonix Iv*) 40 mg IV 799,1999 [facility] Last Admin: 11/12/18 08:40 Dose: 40 mg Pharmacy Consult (Zosyn Per Pharmacy*) 1 note FOLLOW UP .ZOSYN PER PHARMACY [facility] Pharmacy Profile Note (Nicotine Patch Removal Note*) 1 note FOLLOW UP 2099 [facility] Last Admin: 11/11/18 20:57 Dose: 1 note Polyethylene Glycol/Electrolytes (Miralax*) 17 gm PO 799,2099 [facility] Last Admin: 11/12/18 10:02 Dose: Not Given Senna (Senokot 8.6 Mg Tab*) 1 tab PO BEDTIME PRN PRN Reason: CONSTIPATION Sodium Bicarbonate (Sodium Bicarbonate (Antacid)*) 650 mg PO AC [facility] Last Admin: 11/12/18 12:35 Dose: Not Given Vital Signs - 8 hr 11/12/18 11/12/18 11/12/18 06:08 07:40 08:00 Temperature 99.7 F Pulse Rate 76 Respiratory 18 18 Rate Blood Pressure 156/62 (mmHg) O2 Sat by Pulse 96 91 Oximetry 11/12/18 11:32 Temperature 98.9 F Pulse Rate 76 Respiratory 20 Rate Blood Pressure 138/46 (mmHg) O2 Sat by Pulse 91 Oximetry Oxygen Devices in Use Now: None Appearance: Patient is a 58yo male who appears stated age and is sitting in the bed in [facility]. Eyes: No Scleral Icterus, PERRLA Ears/Nose/Mouth/Throat: NL Teeth, Lips, Gums, Clear Oropharnyx, Mucous Membranes Moist Neck: NL Appearance and Movements; NL JVP, Trachea Midline Respiratory: Symmetrical Chest Expansion and Respiratory Effort, Clear to Auscultation Cardiovascular: NL Sounds; No Murmurs; No JVD, RRR, - - Trace B/L LE edema. Abdominal: NL Sounds; No Tenderness; No Distention, No Hepatosplenomegaly Lymphatic: No Cervical Adenopathy Extremities: No Clubbing, Cyanosis Skin: No Rash or Ulcers, No Nodules or Sclerosis Neurological: Alert and Oriented x 3, NL Sensation, NL Muscle Strength and Tone , - - CN II-XII intact. Result Diagrams: 11/12/18 05:32 11/12/18 05:32 Additional Lab and Data: Lab Results Microbiology and Other Data: Microbiology Assess/Plan/Problems-Billing Assessment: Mr. Michaud is a 58 yo M with PMH of HTN and DM2 who presented to the ED with c/o N/V and was found to have ARF likely due to ATN with a cret which is still trending up. - Patient Problems (1) Acute renal failure Current Visit: Yes Status: Acute Comment: - Creatinine still trending up, Decrease in rate fo rise, but producing adequate amount of urine and electrolytes are mostly normal except for stable slight acidosis. - Possibly secondary to hypovolemia causing ATN - FENa 2.2% indicating intra-renal source - Appreciate Nephrology consult; suspects this is secondary to hypovolemia and recommends continuing current treatment. No current intervention for phosphorus level elevated. - Continue Buffering with Bicarbonate - Stop IVF, required 1 dose IV lasix yesterday due to hypoxia, aim for minorly negative fluid balance and euvolemia. - No indication currently for dialysis. (2) Diabetes Current Visit: Yes Status: Acute Code(s): E11.9 - TYPE 2 DIABETES MELLITUS WITHOUT COMPLICATIONS SNOMED Code(s): 11841887 Comment: - A1c 7.8% - Hold metformin - Continue Lispro SS - Good Control (3) HTN (hypertension) Current Visit: Yes Status: Acute Code(s): I10 - ESSENTIAL (PRIMARY) HYPERTENSION SNOMED Code(s): 43900543 Comment: - Normotensive, SBP 130-150s - Hold lisinopril, hydralazine - Continue amlodipine (4) Nausea and vomiting Current Visit: Yes Status: Acute Code(s): R11.2 - NAUSEA WITH VOMITING, UNSPECIFIED SNOMED Code(s): 76465559 Comment: - Unclear how long this has been going on; patient reports months of N/V, but states it has gotten much worse in the last 3 weeks - States it is generally brought on by GERD and coughing. - Appreciate GI consult - Gastric emptying study unremarkable - Continue pantoprazole, Zofran - Continue to monitor, possibly due to ARF, Marijuana, or vaping - Additional studies per GI. EGD today - ? Aspiration, though unlikely, stop zosyn started yesterday. (5) Right rib fracture Current Visit: Yes Status: Acute Code(s): S22.31XA - FRACTURE OF ONE RIB, RIGHT SIDE, INIT FOR CLOS FX SNOMED Code(s): 60341427 Comment: - Likely due to coughing spasm - Continue Tylenol (6) Tobacco use Current Visit: Yes Status: Acute Code(s): Z72.0 - TOBACCO USE SNOMED Code( s): 087381924 Comment: - Encourage cessation - Continue nicotine patch - Has been vaping a large amount for last several weeks. (7) DVT prophylaxis Current Visit: Yes Status: Acute Code(s): Z29.9 - ENCOUNTER FOR PROPHYLACTIC MEASURES, UNSPECIFIED SNOMED Code(s): 220801125 Comment: - Ambulation (8) Full code status Current Visit: Yes Status: Acute Code(s): Z78.9 - OTHER SPECIFIED HEALTH STATUS SNOMED Code(s): 844695357 Comment: Status and Disposition: Inpatient. Anticipate d/c home when medically stable.
[2018-11-12] MEDS ORDERED: fentaNYL* 50 MCG/ML 2 ML VIAL (100 MCG VIAL) ONE (15:35)
[2018-11-12] MEDS ORDERED: Midazolam* 1 MG/ML 10 ML VIAL (10 MG) ONE (15:35)
[2018-11-12] MEDS: Sucralfate TAB* 1 GM PO SCH ×2 (17:37→21:21)
--- NOTE | 2018-11-12 21:00 | PRO ---
CC: Dr. Alexandra* PROCEDURE REPORT: DATE OF PROCEDURE: 11/12/18 - inpatient, room U 347- PROCEDURE: EGD. INDICATION: Nausea, vomiting. MEDICATIONS GIVEN: 1. 50 mcg IV fentanyl. 2. 7 mg IV Versed. DESCRIPTION OF PROCEDURE: After the EGD procedure including the risks, benefits , and alternatives, not limited to perforation, surgery, and/or were explained to Mr. Michaud, written consent was then obtained, IV medication was given, and a bite-block was placed between the teeth. An Olympus gastroscope was then inserted into the patient's mouth, advanced down the esophagus, into the stomach, and into the distal duodenum. In the esophagus, at the GE junction , Z-line was not intact. 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 He also has grade B erosive esophagitis. Biopsies were not taken at this time. The scope was advanced through the GE junction into the body of the stomach. Retroflex view was unremarkable. Forward view also was unremarkable. A CLOtest was obtained. Scope was advanced through a widely patent pylorus, into the duodenal bulb, into the distal duodenum, both of which were unremarkable. Biopsies were obtained for celiac disease. The scope was then withdrawn from the patient. He tolerated the procedure well and was returned to his hospital room in stable condition. IMPRESSION: 1. Complete upper endoscopy into the distal duodenum with biopsies. 2. Grade B erosive esophagitis. I do wonder if this is contributing to his nausea and vomiting. 3. He needs to be on b.i.d. PPI for 8 weeks. I would then like to repeat his EGD with biopsies for Cabrera's esophagus. 4. I will follow up on the SONNY and celiac biopsies. [id number]/[facility] #: [id number] [facility]
[2018-11-12] MEDS: Nicotine Patch Removal NOTE FOLLOW UP SCH (21:47)
[2018-11-13] MEDS: ZOSYN 3.375 GM Q12H per EXTENDED INFUSION IVPB SCH ×2 (00:49)
[2018-11-13] MEDS: Insulin LISPRO* 1 UNITS UNIT SUBCUT SCH ×4 (08:04→21:59)
[2018-11-13 08:18] LABS: BUN/Creatinine Ratio 8.1 (8-20); Calcium 9.6 mg/dL (8.6-10.3); EGFR African American 6.6 (>60); EGFR Non-African American 5.4 (>60); Potassium 4.3 mmol/L (3.5-5.0)
[2018-11-13] MEDS: Nicotine PATCH 21 MG/24 HR* PATCH TRANSDERM SCH (08:20)
[2018-11-13] MEDS: amLODIPine TAB* 5 MG PO SCH (08:20)
[2018-11-13] MEDS: Sodium Bicarbonate (ANTACID)* 650 MG TAB PO SCH ×3 (08:20→16:49)
[2018-11-13] MEDS: Docusate CAP* 100 MG PO SCH ×2 (08:20→22:04)
[2018-11-13] MEDS: Sucralfate TAB* 1 GM PO SCH ×4 (08:20→21:49)
[2018-11-13] MEDS: Pantoprazole IV* 40 MG IV SCH ×2 (08:31→21:52)
[2018-11-13] MEDS: Polyethylene Glycol 3350* 17 GM PACKET PO SCH ×2 (08:31→22:01)
--- NOTE | 2018-11-13 16:08 | PN ---
Subjective Date of Service: 11/13/18 Interval History: Patient is feeling well. Patient denies any continued nausea. Patient denies F/C , N/V, abdominal pain, CP, SOB, dizziness, oliguria, or other pain. Family History: Unchanged from Admission Social History: Unchanged from Admission Past Medical History: Unchanged from Admission Objective Active Medications: Acetaminophen (Tylenol Tab*) 650 mg PO Q4H PRN PRN Reason: PAIN - MILD Amlodipine Besylate (Norvasc Tab*) 10 mg PO DAILY [facility] Last Admin: 11/13/18 08:20 Dose: 10 mg Dextrose (D50w Syringe 50 Ml*) 12.5 gm IV PUSH .FOR FS < 60 - SS PRN PRN Reason: FS < 60 Docusate Sodium (Colace Cap*) 100 mg PO BID [facility] Last Admin: 11/13/18 08:20 Dose: 100 mg Insulin Human Lispro (Humalog*) 0 units [facility]BCUT [facility]; Protocol Last Admin: 11/13/18 12:26 Dose: 6 units Magnesium Hydroxide (Milk Of Magnesia Liq*) 30 ml PO BID PRN PRN Reason: CONSTIPATION Last Admin: 11/10/18 17:53 Dose: 30 ml Nicotine (Nicotine Patch 21 Mg/24 Hr*) 1 patch TRANSDERM DAILY@0800 [facility] Last Admin: 11/13/18 08:20 Dose: 1 patch Ondansetron HCl (Zofran Inj*) 4 mg IV Q4H PRN PRN Reason: NAUSEA Last Admin: 11/11/18 18:15 Dose: 4 mg Pantoprazole Sodium (Protonix Iv*) 40 mg IV 799,1999 [facility] Last Admin: 11/13/18 08:31 Dose: 40 mg Pharmacy Profile Note (Nicotine Patch Removal Note*) 1 note FOLLOW UP 2099 [facility] Last Admin: 11/12/18 21:47 Dose: 1 note Polyethylene Glycol/Electrolytes (Miralax*) 17 gm PO 0800,2099 [facility] Last Admin: 11/13/18 08:31 Dose: 17 gm Senna (Senokot 8.6 Mg Tab*) 1 tab PO BEDTIME PRN PRN Reason: CONSTIPATION Sodium Bicarbonate (Sodium Bicarbonate (Antacid)*) 650 mg PO AC [facility] Last Admin: 11/13/18 12:26 Dose: 650 mg Sucralfate (Carafate*) 1 gm PO QID [facility] Last Admin: 11/13/18 14:09 Dose: 1 gm Vital Signs - 8 hr 11/13/18 11/13/18 11/13/18 08:12 12:04 15:35 Temperature 98.2 F 98.5 F 99.0 F Pulse Rate 72 78 77 Respiratory 16 16 18 Rate Blood Pressure 153/73 167/68 146/58 (mmHg) O2 Sat by Pulse 93 96 92 Oximetry Oxygen Devices in Use Now: None Appearance: Patient is a 58yo male who appears stated age and is sitting in the bed in NAD. Eyes: No Scleral Icterus, PERRLA Ears/Nose/Mouth/Throat: NL Teeth, Lips, Gums, Clear Oropharnyx, Mucous Membranes Moist Neck: NL Appearance and Movements; NL JVP, Trachea Midline Respiratory: Symmetrical Chest Expansion and Respiratory Effort, Clear to Auscultation Cardiovascular: NL Sounds; No Murmurs; No JVD, RRR, - - Trace B/L LE edema. Abdominal: NL Sounds; No Tenderness; No Distention, No Hepatosplenomegaly Lymphatic: No Cervical Adenopathy Extremities: No Clubbing, Cyanosis Skin: No Rash or Ulcers, No Nodules or Sclerosis Neurological: Alert and Oriented x 3, NL Sensation, NL Muscle Strength and Tone , - - CN II-XII intact. Result Diagrams: 11/12/18 05:32 11/13/18 07:38 Additional Lab and Data: Lab Results Microbiology and Other Data: Microbiology Assess/Plan/Problems-Billing Assessment: Mr. Michaud is a 58 yo M with PMH of HTN and DM2 who presented to the ED with c/o N/V and was found to have ARF likely due to ATN with a cret which is still trending up. - Patient Problems (1) Acute renal failure Current Visit: Yes Status: Acute Comment: - Creatinine still trending up, Decrease in rate of rise, but producing adequate amount of urine and electrolytes are mostly normal except for stable slight acidosis. - Possibly secondary to hypovolemia causing ATN - FENa 2.2% indicating intra-renal source - Appreciate Nephrology consult; suspects this is secondary to hypovolemia and recommends continuing current treatment. No current intervention for phosphorus level elevated. - Continue Buffering with Bicarbonate - Stop IVF, required 1 dose IV lasix yesterday due to hypoxia, aim for minorly negative fluid balance and euvolemia. - No indication currently for dialysis. - Making approximately .5mg/kg/hr. (2) Diabetes Current Visit: Yes Status: Acute Code(s): E11.9 - TYPE 2 DIABETES MELLITUS WITHOUT COMPLICATIONS SNOMED Code(s): 81502302 Comment: - A1c 7.8% - Hold metformin - Continue Lispro SS - Good Control (3) HTN (hypertension) Current Visit: Yes Status: Acute Code(s): I10 - ESSENTIAL (PRIMARY) HYPERTENSION SNOMED Code(s): 69258902 Comment: - Slightly hypertensive - Hold lisinopril - Continue amlodipine, Resume Hydralazine. (4) Nausea and vomiting Current Visit: Yes Status: Acute Code(s): R11.2 - NAUSEA WITH VOMITING, UNSPECIFIED SNOMED Code(s): 82993711 Comment: - Unclear how long this has been going on; patient reports months of N/V, but states it has gotten much worse in the last 3 weeks - States it is generally brought on by GERD and coughing. - Appreciate GI consult - Gastric emptying study unremarkable, EGD shows severe erosive esophagitis. - Continue pantoprazole, Zofran (5) Right rib fracture Current Visit: Yes Status: Acute Code(s): S22.31XA - FRACTURE OF ONE RIB, RIGHT SIDE, INIT FOR CLOS FX SNOMED Code(s): 61842081 Comment: - Likely due to coughing spasm - Continue Tylenol (6) Tobacco use Current Visit: Yes Status: Acute Code(s): Z72.0 - TOBACCO USE SNOMED Code( s): 091565299 Comment: - Encourage cessation - Continue nicotine patch - Has been vaping a large amount for last several weeks. (7) DVT prophylaxis Current Visit: Yes Status: Acute Code(s): Z29.9 - ENCOUNTER FOR PROPHYLACTIC MEASURES, UNSPECIFIED SNOMED Code(s): 992124033 Comment: - Ambulation (8) Full code status Current Visit: Yes Status: Acute Code(s): Z78.9 - OTHER SPECIFIED HEALTH STATUS SNOMED Code(s): 646729150 Comment: Status and Disposition: Inpatient. Anticipate d/c home when medically stable.
[2018-11-13] MEDS: hydrALAZINE TAB* 25 MG PO SCH (18:02)
[2018-11-13] MEDS: Nicotine Patch Removal NOTE FOLLOW UP SCH (22:00)
[2018-11-14 06:32] LABS: BUN/Creatinine Ratio 8.3 (8-20); Calcium 9.4 mg/dL (8.6-10.3); EGFR African American 6.1 (>60); Potassium 4.2 mmol/L (3.5-5.0)
[2018-11-14] MEDS: Insulin LISPRO* 1 UNITS UNIT SUBCUT SCH ×4 (06:43→20:42)
[2018-11-14] MEDS: Sodium Bicarbonate (ANTACID)* 650 MG TAB PO SCH ×3 (07:56→16:58)
[2018-11-14] MEDS: Sucralfate TAB* 1 GM PO SCH ×4 (07:56→20:41)
[2018-11-14] MEDS: amLODIPine TAB* 5 MG PO SCH (07:56)
[2018-11-14] MEDS: hydrALAZINE TAB* 25 MG PO SCH (07:57)
[2018-11-14] MEDS: Docusate CAP* 100 MG PO SCH ×2 (07:57→20:41)
[2018-11-14] MEDS: Pantoprazole IV* 40 MG IV SCH ×2 (07:58→20:25)
[2018-11-14] MEDS: Polyethylene Glycol 3350* 17 GM PACKET PO SCH ×3 (07:58→20:41)
[2018-11-14] MEDS: Nicotine PATCH 21 MG/24 HR* PATCH TRANSDERM SCH ×2 (07:58→16:58)
--- NOTE | 2018-11-14 14:46 | PN ---
Subjective Date of Service: 11/14/18 Interval History: Patient continues to feels better than when he came in. Patient has no shortness of breath, no pain with urination, no decrease in urination. Patient denies F/C, N/V, abdominal pain, diarrhea, CP, or other pain. Family History: Unchanged from Admission Social History: Unchanged from Admission Past Medical History: Unchanged from Admission Objective Active Medications: Acetaminophen (Tylenol Tab*) 650 mg PO Q4H PRN PRN Reason: PAIN - MILD Amlodipine Besylate (Norvasc Tab*) 10 mg PO DAILY [facility] Last Admin: 11/14/18 07:56 Dose: 10 mg Dextrose (D50w Syringe 50 Ml*) 12.5 gm IV PUSH .FOR FS < 60 - SS PRN PRN Reason: FS < 60 Docusate Sodium (Colace Cap*) 100 mg PO BID [facility] Last Admin: 11/14/18 07:57 Dose: 100 mg Hydralazine HCl (Apresoline Tab*) 12.5 mg PO DAILY [facility] Last Admin: 11/14/18 07:57 Dose: 12.5 mg Insulin Human Lispro (Humalog*) 0 units [facility]BCUT [facility]; Protocol Last Admin: 11/14/18 12:36 Dose: 2 units Magnesium Hydroxide (Milk Of Magnesia Liq*) 30 ml PO BID PRN PRN Reason: CONSTIPATION Last Admin: 11/10/18 17:53 Dose: 30 ml Nicotine (Nicotine Patch 21 Mg/24 Hr*) 1 patch TRANSDERM DAILY@0800 [facility] Last Admin: 11/14/18 07:58 Dose: 1 patch Ondansetron HCl (Zofran Inj*) 4 mg IV Q4H PRN PRN Reason: NAUSEA Last Admin: 11/11/18 18:15 Dose: 4 mg Pantoprazole Sodium (Protonix Iv*) 40 mg IV 0800,1999 [facility] Last Admin: 11/14/18 07:58 Dose: 40 mg Pharmacy Profile Note (Nicotine Patch Removal Note*) 1 note FOLLOW UP 2099 [facility] Last Admin: 11/13/18 22:00 Dose: 1 note Polyethylene Glycol/Electrolytes (Miralax*) 17 gm PO 0800,2100 [facility] Last Admin: 11/14/18 08:03 Dose: Not Given Senna (Senokot 8.6 Mg Tab*) 1 tab PO BEDTIME PRN PRN Reason: CONSTIPATION Sodium Bicarbonate (Sodium Bicarbonate (Antacid)*) 650 mg PO AC [facility] Last Admin: 11/14/18 11:47 Dose: 650 mg Sucralfate (Carafate*) 1 gm PO QID [facility] Last Admin: 11/14/18 12:36 Dose: 1 gm Vital Signs - 8 hr 11/14/18 11/14/18 11/14/18 07:33 08:01 12:36 Temperature 97.9 F 98 F Pulse Rate 75 75 Respiratory 18 16 17 Rate Blood Pressure 158/73 160/81 (mmHg) O2 Sat by Pulse 92 93 Oximetry Oxygen Devices in Use Now: None Appearance: Patient is a 58yo male who appears stated age and is sitting in the bed in [facility]. Eyes: No Scleral Icterus, PERRLA Ears/Nose/Mouth/Throat: NL Teeth, Lips, Gums, Clear Oropharnyx, Mucous Membranes Moist Neck: NL Appearance and Movements; NL JVP, Trachea Midline Respiratory: Symmetrical Chest Expansion and Respiratory Effort, Clear to Auscultation Cardiovascular: NL Sounds; No Murmurs; No JVD, RRR, - - 1+ B/L LE edema. Abdominal: NL Sounds; No Tenderness; No Distention, No Hepatosplenomegaly Lymphatic: No Cervical Adenopathy Extremities: No Edema, No Clubbing, Cyanosis Skin: No Rash or Ulcers, No Nodules or Sclerosis Neurological: Alert and Oriented x 3, NL Sensation, NL Muscle Strength and Tone , - - CN II-XII intact. Result Diagrams: 11/12/18 05:32 11/14/18 05:22 Additional Lab and Data: Lab Results Microbiology and Other Data: Microbiology Assess/Plan/Problems-Billing Assessment: Mr. Michaud is a 58 yo M with PMH of HTN and DM2 who presented to the ED with c/o N/V and was found to have ARF likely due to ATN with a cret which is still trending up. - Patient Problems (1) Acute renal failure Current Visit: Yes Status: Acute Comment: - Creatinine still trending up, Decrease in rate of rise, but producing adequate amount of urine and electrolytes are mostly normal except for stable slight acidosis. - Possibly secondary to hypovolemia causing ATN. No Signs of other cause and correct clinical picture. - FENa 2.2% indicating intra-renal source - Appreciate Nephrology consult; suspects this is secondary to hypovolemia and recommends continuing current treatment. No current intervention for phosphorus level elevated. - Continue Buffering with Bicarbonate - Stop IVF, required 1 dose IV lasix yesterday due to hypoxia, aim for minorly negative fluid balance and euvolemia. - No indication currently for dialysis. - Making approximately .5mg/kg/hr urine. (2) Diabetes Current Visit: Yes Status: Acute Code(s): E11.9 - TYPE 2 DIABETES MELLITUS WITHOUT COMPLICATIONS SNOMED Code(s): 14617038 Comment: - A1c 7.8% - Hold metformin - Continue Lispro SS - Good Control (3) HTN (hypertension) Current Visit: Yes Status: Acute Code(s): I10 - ESSENTIAL (PRIMARY) HYPERTENSION SNOMED Code(s): 46398220 Comment: - Slightly hypertensive - Hold lisinopril - Continue amlodipine, Resume Hydralazine. (4) Nausea and vomiting Current Visit: Yes Status: Acute Code(s): R11.2 - NAUSEA WITH VOMITING, UNSPECIFIED SNOMED Code(s): 35960926 Comment: - Unclear how long this has been going on; patient reports months of N/V, but states it has gotten much worse in the last 3 weeks - States it is generally brought on by GERD and coughing. - Appreciate GI consult - Gastric emptying study unremarkable, EGD shows severe erosive esophagitis. - Continue pantoprazole, Zofran (5) Right rib fracture Current Visit: Yes Status: Acute Code(s): S22.31XA - FRACTURE OF ONE RIB, RIGHT SIDE, INIT FOR CLOS FX SNOMED Code(s): 89450147 Comment: - Likely due to coughing spasm - Continue Tylenol (6) Tobacco use Current Visit: Yes Status: Acute Code(s): Z72.0 - TOBACCO USE SNOMED Code( s): 394435726 Comment: - Encourage cessation - Continue nicotine patch - Has been vaping a large amount for last several weeks. (7) DVT prophylaxis Current Visit: Yes Status: Acute Code(s): Z29.9 - ENCOUNTER FOR PROPHYLACTIC MEASURES, UNSPECIFIED SNOMED Code(s): 568968849 Comment: - Ambulation (8) Full code status Current Visit: Yes Status: Acute Code(s): Z78.9 - OTHER SPECIFIED HEALTH STATUS SNOMED Code(s): 993913188 Comment: Status and Disposition: Inpatient. Anticipate d/c home when medically stable.
[2018-11-14] MEDS: Nicotine Patch Removal NOTE FOLLOW UP SCH (20:33)
[2018-11-15 06:16] LABS: BUN/Creatinine Ratio 8.4 (8-20); Calcium 9.3 mg/dL (8.6-10.3); EGFR African American 5.5 (>60); EGFR Non-African American 4.5 (>60); Magnesium 2.8 mg/dL (1.9-2.7); Phosphorus 5.8 mg/dL (2.5-5.0); Potassium 4.3 mmol/L (3.5-5.0)
[2018-11-15] MEDS: Insulin LISPRO* 1 UNITS UNIT SUBCUT SCH ×4 (08:19→21:33)
[2018-11-15] MEDS: Nicotine PATCH 21 MG/24 HR* PATCH TRANSDERM SCH (08:20)
[2018-11-15] MEDS: Pantoprazole IV* 40 MG IV SCH ×2 (08:20→21:33)
[2018-11-15] MEDS: Sodium Bicarbonate (ANTACID)* 650 MG TAB PO SCH ×3 (08:21→18:04)
[2018-11-15] MEDS: amLODIPine TAB* 5 MG PO SCH (08:21)
[2018-11-15] MEDS: Polyethylene Glycol 3350* 17 GM PACKET PO SCH ×2 (08:21→21:34)
[2018-11-15] MEDS: Docusate CAP* 100 MG PO SCH ×2 (08:22→21:33)
[2018-11-15] MEDS: Sucralfate TAB* 1 GM PO SCH ×4 (08:22→21:33)
[2018-11-15] MEDS: hydrALAZINE TAB* 25 MG PO SCH (08:22)
[2018-11-15 10:20] LABS: ABS Basophils 0.1 10^3/ul (0-0.2); ABS Eosinophils 0.4 10^3/ul (0-0.6); ABS Lymphocytes 0.8 10^3/ul (1.0-4.8); ABS Monocytes 0.8 10^3/ul (0-0.8); ABS Neutrophils 5.4 10^3/ul (1.5-7.7); Eosinophil % 5.1 %; Hematocrit 33 % (42-52); Lymphocyte % 10.9 %; Mean Corpuscular HGB Conc 34 g/dL (31-36); Mean Corpuscular Hemoglobin 29 pg (27-31); Mean Corpuscular Volume 86 fL (80-94); Platelet Count 187 10^3/uL (150-450); Red Blood Count 3.79 10^6 /uL (4.18-5.48); Red Cell Distribution Width 15 % (10-15); White Blood Count 7.6 10^3/uL (3.5-10.8)
[2018-11-15 10:41] LABS: Activated Partial Thrombo Time 34.8 seconds (26.0-38.0); INR 0.95 (0.82-1.09)
--- NOTE | 2018-11-15 12:43 | PN ---
Subjective Date of Service: 11/15/18 Interval History: Patient is feeling well today. Had a loose BM today, mentions he struggles with constipation chronically. Denies abd pain, n/v, difficulty urinating, hematuria , chest pain, SOB. Family History: Unchanged from Admission Social History: Unchanged from Admission Past Medical History: Unchanged from Admission Objective Active Medications: Acetaminophen (Tylenol Tab*) 650 mg PO Q4H PRN PRN Reason: PAIN - MILD Amlodipine Besylate (Norvasc Tab*) 10 mg PO DAILY [facility] Last Admin: 11/15/18 08:21 Dose: 10 mg Dextrose (D50w Syringe 50 Ml*) 12.5 gm IV PUSH .FOR FS < 60 - SS PRN PRN Reason: FS < 60 Docusate Sodium (Colace Cap*) 100 mg PO BID [facility] Last Admin: 11/15/18 08:22 Dose: Not Given Hydralazine HCl (Apresoline Tab*) 12.5 mg PO DAILY [facility] Last Admin: 11/15/18 08:22 Dose: 12.5 mg Insulin Human Lispro (Humalog*) 0 units SUBCUT [facility]; Protocol Last Admin: 11/15/18 08:19 Dose: Not Given Magnesium Hydroxide (Milk Of Magnesia Liq*) 30 ml PO BID PRN PRN Reason: CONSTIPATION Last Admin: 11/10/18 17:53 Dose: 30 ml Nicotine (Nicotine Patch 21 Mg/24 Hr*) 1 patch TRANSDERM DAILY@0800 [facility] Last Admin: 11/15/18 08:20 Dose: 1 patch Ondansetron HCl (Zofran Inj*) 4 mg IV Q4H PRN PRN Reason: NAUSEA Last Admin: 11/11/18 18:15 Dose: 4 mg Pantoprazole Sodium (Protonix Iv*) 40 mg IV 0800,1999 [facility] Last Admin: 11/15/18 08:20 Dose: 40 mg Pharmacy Profile Note (Nicotine Patch Removal Note*) 1 note FOLLOW UP 2099 [facility] Last Admin: 11/14/18 20:33 Dose: 1 note Polyethylene Glycol/Electrolytes (Miralax*) 17 gm PO 0800,2099 [facility] Last Admin: 11/15/18 08:21 Dose: Not Given Senna (Senokot 8.6 Mg Tab*) 1 tab PO BEDTIME PRN PRN Reason: CONSTIPATION Sodium Bicarbonate (Sodium Bicarbonate (Antacid)*) 650 mg PO AC [facility] Last Admin: 11/15/18 08:21 Dose: 650 mg Sucralfate (Carafate*) 1 gm PO QID [facility] Last Admin: 11/15/18 08:22 Dose: 1 gm Vital Signs - 8 hr 11/15/18 11/15/18 11/15/18 07:21 08:00 11:39 Temperature 99 F 98 F Pulse Rate 66 77 Respiratory 16 18 16 Rate Blood Pressure 158/70 156/56 (mmHg) O2 Sat by Pulse 95 96 Oximetry Oxygen Devices in Use Now: None Appearance: Middle aged, white male laying in bed appearing in NAD Eyes: No Scleral Icterus, PERRLA Ears/Nose/Mouth/Throat: Mucous Membranes Moist Neck: NL Appearance and Movements; NL JVP Respiratory: Symmetrical Chest Expansion and Respiratory Effort, Clear to Auscultation Cardiovascular: NL Sounds; No Murmurs; No JVD, RRR Abdominal: - - abd soft, nontender, nondistended Extremities: No Edema, No Clubbing, Cyanosis Skin: No Rash or Ulcers Neurological: Alert and Oriented x 3, NL Muscle Strength and Tone Result Diagrams: 11/15/18 10:12 11/15/18 05:08 Additional Lab and Data: Lab Results Microbiology and Other Data: Microbiology Assess/Plan/Problems-Billing Assessment: Mr. Michaud is a 58 yo M with PMH of HTN and DM2 who presented to the ED with c/o N/V and was found to have acute renal failure which is worsening. - Patient Problems (1) Acute renal failure Current Visit: Yes Status: Acute Comment: - Thought to be due to ATN 2/2 hypovolemia initially, however continues to worsen - Renal U/S at admission normal, FENa 2.2% indicating intra-renal source - IVF previously stopped due to hypoxia, thought to be due to fluid overload, given lasix yesterday - Appreciate Nephrology consult; Dr. Sage recommends renal biopsy and placement of tunneled dialysis catheter; placed orders and consulted Dr. Roland , will discuss further with IR scheduling tomorrow - Continue Buffering with Bicarbonate; discontinuing magnesium replacement as patient is now hypermagnesemic - Phosphate is trending up but no need for intervention at this time - Making approximately .8mg/kg/hr urine (2) Nausea and vomiting Current Visit: Yes Status: Acute Code(s): R11.2 - NAUSEA WITH VOMITING, UNSPECIFIED SNOMED Code(s): 38528508 Comment: - Unclear how long this has been going on; patient reports months of N/V, but states it has gotten much worse in the last 3 weeks - States it is generally brought on by GERD and coughing. - Appreciate GI consult - Gastric emptying study unremarkable, EGD shows severe erosive esophagitis. - Continue pantoprazole, Zofran - N/V has resolved (3) Diabetes Current Visit: Yes Status: Acute Code(s): E11.9 - TYPE 2 DIABETES MELLITUS WITHOUT COMPLICATIONS SNOMED Code(s): 90082955 Comment: - A1c 7.8% - Hold metformin - Continue Lispro SS - Good Control (4) HTN (hypertension) Current Visit: Yes Status: Acute Code(s): I10 - ESSENTIAL (PRIMARY) HYPERTENSION SNOMED Code(s): 53446944 Comment: - Normotensive - Hold lisinopril in setting of renal failure - Continue amlodipine, hydralazine po daily; added prn hydralazine for SBP>170 (5) Right rib fracture Current Visit: Yes Status: Acute Code(s): S22.31XA - FRACTURE OF ONE RIB, RIGHT SIDE, INIT FOR CLOS FX SNOMED Code(s): 63864261 Comment: - Likely due to coughing spasm - Continue Tylenol (6) Tobacco use Current Visit: Yes Status: Acute Code(s): Z72.0 - TOBACCO USE SNOMED Code( s): 028631542 Comment: - Patient motivated to quit smoking - Continue nicotine patch - Has been vaping a large amount for last several weeks, additionally admits to marijuana use (7) DVT prophylaxis Current Visit: Yes Status: Acute Code(s): Z29.9 - ENCOUNTER FOR PROPHYLACTIC MEASURES, UNSPECIFIED SNOMED Code(s): 664878965 Comment: - Ambulation (8) Full code status Current Visit: Yes Status: Acute Code(s): Z78.9 - OTHER SPECIFIED HEALTH STATUS SNOMED Code(s): 157995457 Comment: Status and Disposition: Inpatient. Anticipate d/c home when medically stable.
[2018-11-15] MEDS: hydrALAZINE IV* 20 MG/ML VIAL IV SLOW PU PRN (18:04)
[2018-11-15] MEDS: Nicotine Patch Removal NOTE FOLLOW UP SCH (21:33)
[2018-11-16 06:33] LABS: BUN/Creatinine Ratio 8.4 (8-20); Calcium 9.5 mg/dL (8.6-10.3); EGFR African American 5.2 (>60); EGFR Non-African American 4.3 (>60); Magnesium 2.8 mg/dL (1.9-2.7); Phosphorus 5.9 mg/dL (2.5-5.0); Potassium 4.2 mmol/L (3.5-5.0)
[2018-11-16] MEDS: Insulin LISPRO* 1 UNITS UNIT SUBCUT SCH ×4 (09:59→21:06)
[2018-11-16] MEDS: Polyethylene Glycol 3350* 17 GM PACKET PO SCH ×2 (10:05→20:15)
[2018-11-16] MEDS: Sodium Bicarbonate (ANTACID)* 650 MG TAB PO SCH ×3 (10:05→16:15)
[2018-11-16] MEDS: Docusate CAP* 100 MG PO SCH ×2 (10:06→20:14)
[2018-11-16] MEDS: Sodium Citrate/Citric Acid* 15 ML UDC PO SCH ×3 (10:06→20:54)
[2018-11-16] MEDS: Sucralfate TAB* 1 GM PO SCH ×4 (10:07→20:14)
--- NOTE | 2018-11-16 10:14 | CONS ---
NEPHROLOGY CONSULTATION REPORT: DATE OF CONSULT: 11/09/18 HISTORY OF PRESENT ILLNESS: Mr. Michaud is a 58-year-old gentleman who presented because of nausea for a few months prior to admission. He had been vomiting multiple times a day. He had not been able to take his medications. He had been complaining of weakness and fatigue. He had some right lower rib pain. On admission, he was found to have renal insufficiency, which precipitated my consultation. He had no neuromuscular irritability. No evidence of fluid overload. He was not cold all the time. He had some easy fatigability. PAST MEDICAL HISTORY: Significant for hypertension, diabetes mellitus type 2. MEDICATIONS: Included: 1. Aspirin 81 mg daily. 2. Lisinopril 40 mg daily. 3. Amlodipine 5 mg 2 daily. 4. Hydralazine 12.5 mg daily. 5. Metformin 1000 mg daily. FAMILY HISTORY: Unremarkable. SOCIAL HISTORY: He was a previous smoker. He vapes multiple times a day. REVIEW OF SYSTEMS: Other than the previous and present medical illnesses are unremarkable. PHYSICAL EXAM: At the time that I saw him, his blood pressure was 136/73 with a pulse of 63. HEENT: He is normocephalic without evidence of trauma. He is anicteric. His extraocular muscles are intact. Mucous membranes are moist. There is no jugular venous distention. The chest is clear. The heart reveals a regular rhythm without murmurs. The abdomen is soft and nontender. Bowel sounds are positive. Bones, joints, extremities reveal no cyanosis, clubbing, or edema. Neurologic: He is alert and oriented. He moves all 4 extremities. DIAGNOSTIC STUDIES/LAB DATA: Review of his laboratory studies at the present time reveals a sodium of 133, potassium 4.2, chloride 103, total CO2 17, BUN 102 , creatinine 12.16, glucose of 102. Of significance, his creatinine had been raising at a rate of approximately 1.4 mg/dL per day. Near the end of last week , he began to slow that down considerably; however, over the weekend, he has increased his rate of rise of creatinine until between yesterday and today when he slowed up again. In addition, he has increased his urine volume significantly since yesterday and is now in negative fluid balance. IMPRESSION AND PLAN: I discussed his case with Sylvia Vera yesterday and we decided it is now appropriate to proceed on with a renal biopsy as he has not turned around in what would be the usual time course for what was presumed to be acute tubular necrosis. We also discussed the possibility of placing a tunneled dialysis catheter for initiation of dialysis; however, since his rate of rise of creatinine has slowed and he has now negative fluid balance, I think it is appropriate for us to delay putting in the dialysis catheter. However, I think we should proceed with his planned renal biopsy for this morning. I have discussed the case with Sylvia Vera. The impression is acute tubular necrosis with acute renal failure with failure to recover. [id number]/CPS #: [id number] MTDD
[2018-11-16] MEDS: amLODIPine TAB* 5 MG PO SCH (10:53)
[2018-11-16] MEDS: Pantoprazole IV* 40 MG IV SCH ×2 (10:53→20:16)
[2018-11-16] MEDS: hydrALAZINE TAB* 25 MG PO SCH ×2 (10:53→20:14)
[2018-11-16] MEDS: Nicotine PATCH 21 MG/24 HR* PATCH TRANSDERM SCH (10:56)
[2018-11-16] MEDS ORDERED: Naloxone* 0.4 MG/ML 1 ML VIAL ONE (12:57)
[2018-11-16] MEDS ORDERED: fentaNYL* 50 MCG/ML 2 ML VIAL (100 MCG VIAL) ONE (12:57)
[2018-11-16] MEDS: hydrALAZINE IV* 20 MG/ML VIAL IV SLOW PU PRN (16:15)
--- NOTE | 2018-11-16 19:41 | PN ---
Subjective Date of Service: 11/16/18 Interval History: Patient evaluated after renal biopsy. Feels well and does not have pain at biopsy site. Patient denies metallic taste, low back pain, dysuria, hematuria, fever/chills, chest pain, difficulty breathing. Family History: Unchanged from Admission Social History: Unchanged from Admission Past Medical History: Unchanged from Admission Objective Active Medications: Acetaminophen (Tylenol Tab*) 650 mg PO Q4H PRN PRN Reason: PAIN - MILD Amlodipine Besylate (Norvasc Tab*) 10 mg PO DAILY [facility] Last Admin: 11/16/18 10:53 Dose: 10 mg Citric Acid/Sodium Citrate (Bicitra*) 30 ml PO TID [facility] Last Admin: 11/16/18 16:18 Dose: 30 ml Dextrose (D50w Syringe 50 Ml*) 12.5 gm IV PUSH .FOR FS < 60 - SS PRN PRN Reason: FS < 60 Docusate Sodium (Colace Cap*) 100 mg PO BID [facility] Last Admin: 11/16/18 10:06 Dose: Not Given Hydralazine HCl (Apresoline Iv*) 5 mg IV SLOW PU Q6H PRN PRN Reason: SYSTOLIC BP GREATER THAN: Last Admin: 11/16/18 16:15 Dose: 5 mg Hydralazine HCl (Apresoline Tab*) 25 mg PO TID [facility] Insulin Human Lispro (Humalog*) 0 units SUBCUT [facility]; Protocol Last Admin: 11/16/18 18:22 Dose: 2 units Nicotine (Nicotine Patch 21 Mg/24 Hr*) 1 patch TRANSDERM DAILY@0800 [facility] Last Admin: 11/16/18 10:56 Dose: 1 patch Ondansetron HCl (Zofran Inj*) 4 mg IV Q4H PRN PRN Reason: NAUSEA Last Admin: 11/11/18 18:15 Dose: 4 mg Pantoprazole Sodium (Protonix Iv*) 40 mg IV 0800,1999 [facility] Last Admin: 11/16/18 10:53 Dose: 40 mg Pharmacy Profile Note (Nicotine Patch Removal Note*) 1 note FOLLOW UP 2099 [facility] Last Admin: 11/15/18 21:33 Dose: 1 note Polyethylene Glycol/Electrolytes (Miralax*) 17 gm PO 0800,2099 [facility] Last Admin: 11/16/18 10:05 Dose: Not Given Senna (Senokot 8.6 Mg Tab*) 1 tab PO BEDTIME PRN PRN Reason: CONSTIPATION Sodium Bicarbonate (Sodium Bicarbonate (Antacid)*) 650 mg PO AC KEITH Last Admin: 11/16/18 16:15 Dose: 650 mg Sucralfate (Carafate*) 1 gm PO QID [facility] Last Admin: 11/16/18 16:46 Dose: 1 gm Vital Signs - 8 hr 11/16/18 11/16/18 11/16/18 11:59 14:18 15:02 Temperature 98.5 F 99.2 F 97.7 F Pulse Rate 72 84 79 Respiratory 16 20 16 Rate Blood Pressure 170/74 173/76 155/68 (mmHg) O2 Sat by Pulse 96 96 95 Oximetry 11/16/18 11/16/18 11/16/18 15:58 17:55 19:22 Temperature 98.7 F Pulse Rate 81 Respiratory 16 Rate Blood Pressure 190/66 190/82 160/80 (mmHg) O2 Sat by Pulse 96 Oximetry 11/16/18 19:32 Temperature Pulse Rate Respiratory 17 Rate Blood Pressure (mmHg) O2 Sat by Pulse Oximetry Oxygen Devices in Use Now: None Appearance: Middle age white male sitting upright over side of bed, appearing in NAD Eyes: No Scleral Icterus, PERRLA Ears/Nose/Mouth/Throat: Mucous Membranes Moist Neck: NL Appearance and Movements; NL JVP Respiratory: Symmetrical Chest Expansion and Respiratory Effort, Clear to Auscultation Cardiovascular: NL Sounds; No Murmurs; No JVD, RRR Abdominal: - - abd soft, nontender, nondistended Extremities: No Edema, No Clubbing, Cyanosis Skin: No Rash or Ulcers Neurological: Alert and Oriented x 3, NL Muscle Strength and Tone, - - Patient appears mildly tremulous Result Diagrams: 11/15/18 10:12 11/16/18 05:43 Additional Lab and Data: Lab Results Microbiology and Other Data: Microbiology Assess/Plan/Problems-Billing Assessment: Mr. Michaud is a 58 yo M with PMH of HTN and DM2 who presented to the ED with c/o N/V and was found to have acute renal failure which is worsening. - Patient Problems (1) Acute renal failure Current Visit: Yes Status: Acute Comment: - Thought to be due to ATN 2/2 hypovolemia initially, however continues to worsen and this is likely not the etiology - Renal U/S at admission normal, FENa 2.2% indicating intra-renal source - IVF previously stopped due to hypoxia, thought to be due to fluid overload, given lasix yesterday - Dr. Sage recommends canceling TDC placement - Renal biopsy performed today, results pending - Continue Buffering with Bicarbonate; - Phosphate is trending up but no need for intervention at this time - Making approximately .9mg/kg/hr urine - ordering 24hr protein urine collection (2) Nausea and vomiting Current Visit: Yes Status: Acute Code(s): R11.2 - NAUSEA WITH VOMITING, UNSPECIFIED SNOMED Code(s): 65974741 Comment: - Unclear how long this has been going on; patient reports months of N/V, but states it has gotten much worse in the last 3 weeks - States it is generally brought on by GERD and coughing. - Appreciate GI consult - Gastric emptying study unremarkable, EGD shows severe erosive esophagitis - Continue pantoprazole, Zofran - N/V has resolved (3) Diabetes Current Visit: Yes Status: Acute Code(s): E11.9 - TYPE 2 DIABETES MELLITUS WITHOUT COMPLICATIONS SNOMED Code(s): 15872060 Comment: - A1c 7.8% - Hold metformin - Continue Lispro SS - Good Control (4) HTN (hypertension) Current Visit: Yes Status: Acute Code(s): I10 - ESSENTIAL (PRIMARY) HYPERTENSION SNOMED Code(s): 40736036 Comment: - Hypertensive today - Hold lisinopril in setting of renal failure - Continue amlodipine - Hydralazine scheduled to TID, continue prn IV hydralazine for SBP>170 - will start metoprolol tomorrow if hypertension persists (5) Right rib fracture Current Visit: Yes Status: Acute Code(s): S22.31XA - FRACTURE OF ONE RIB, RIGHT SIDE, INIT FOR CLOS FX SNOMED Code(s): 11023149 Comment: - Likely due to coughing spasm - Continue Tylenol (6) Tobacco use Current Visit: Yes Status: Acute Code(s): Z72.0 - TOBACCO USE SNOMED Code( s): 999698691 Comment: - Patient motivated to quit smoking - Continue nicotine patch - Has been vaping a large amount for last several weeks, additionally admits to marijuana use (7) DVT prophylaxis Current Visit: Yes Status: Acute Code(s): Z29.9 - ENCOUNTER FOR PROPHYLACTIC MEASURES, UNSPECIFIED SNOMED Code(s): 717742518 Comment: - Ambulation (8) Full code status Current Visit: Yes Status: Acute Code(s): Z78.9 - OTHER SPECIFIED HEALTH STATUS SNOMED Code(s): 427011084 Comment: Status and Disposition: Inpatient. Anticipate d/c home when medically stable.
[2018-11-16] MEDS: Nicotine Patch Removal NOTE FOLLOW UP SCH (20:57)
[2018-11-16] MEDS ORDERED: Metoprolol Tartrate TAB* 25 MG PO SCH (21:00)
[2018-11-17 07:15] LABS: BUN/Creatinine Ratio 8.4 (8-20); Calcium 9.5 mg/dL (8.6-10.3); EGFR Non-African American 4.2 (>60); Magnesium 2.8 mg/dL (1.9-2.7); Phosphorus 6.6 mg/dL (2.5-5.0); Potassium 4.2 mmol/L (3.5-5.0)
[2018-11-17] MEDS: Insulin LISPRO* 1 UNITS UNIT SUBCUT SCH ×4 (07:19→22:37)
[2018-11-17] MEDS: Sodium Citrate/Citric Acid* 15 ML UDC PO SCH ×3 (08:29→21:29)
[2018-11-17] MEDS: amLODIPine TAB* 5 MG PO SCH (08:34)
[2018-11-17] MEDS: hydrALAZINE TAB* 25 MG PO SCH ×3 (08:34→21:32)
[2018-11-17] MEDS: Docusate CAP* 100 MG PO SCH ×2 (08:34→21:32)
[2018-11-17] MEDS: Sodium Bicarbonate (ANTACID)* 650 MG TAB PO SCH ×3 (08:34→17:17)
[2018-11-17] MEDS: Nicotine PATCH 21 MG/24 HR* PATCH TRANSDERM SCH ×2 (08:35→16:23)
[2018-11-17] MEDS: Pantoprazole IV* 40 MG IV SCH ×2 (08:36→21:34)
[2018-11-17] MEDS: Polyethylene Glycol 3350* 17 GM PACKET PO SCH ×2 (08:41→22:32)
[2018-11-17] MEDS: Sevelamer TAB* 800 MG PO SCH ×3 (09:21→18:04)
--- NOTE | 2018-11-17 10:52 | PN ---
Subjective Date of Service: 11/17/18 Interval History: Patient feeling well today. Admits he feels cold but has not experienced chills. Patient's family brought him dinner yesterday from [employer]. Patient reports he continues to make urine. Denies dysuria, hematuria, fever, chest pain, low back pain, difficulty breathing, abd pain, n/v. Family History: Unchanged from Admission Social History: Unchanged from Admission Past Medical History: Unchanged from Admission Objective Active Medications: Acetaminophen (Tylenol Tab*) 650 mg PO Q4H PRN PRN Reason: PAIN - MILD Amlodipine Besylate (Norvasc Tab*) 10 mg PO DAILY [facility] Last Admin: 11/17/18 08:34 Dose: 10 mg Citric Acid/Sodium Citrate (Bicitra*) 30 ml PO TID [facility] Last Admin: 11/17/18 08:29 Dose: 30 ml Dextrose (D50w Syringe 50 Ml*) 12.5 gm IV PUSH .FOR FS < 60 - SS PRN PRN Reason: FS < 60 Docusate Sodium (Colace Cap*) 100 mg PO BID [facility] Last Admin: 11/17/18 08:34 Dose: 100 mg Hydralazine HCl (Apresoline Iv*) 5 mg IV SLOW PU Q6H PRN PRN Reason: SYSTOLIC BP GREATER THAN: Last Admin: 11/16/18 16:15 Dose: 5 mg Hydralazine HCl (Apresoline Tab*) 25 mg PO TID [facility] Last Admin: 11/17/18 08:34 Dose: 25 mg Insulin Human Lispro (Humalog*) 0 units SUBCUT [facility]; Protocol Last Admin: 11/17/18 07:19 Dose: Not Given Nicotine (Nicotine Patch 21 Mg/24 Hr*) 1 patch TRANSDERM DAILY@0800 [facility] Last Admin: 11/17/18 08:35 Dose: 1 patch Ondansetron HCl (Zofran Inj*) 4 mg IV Q4H PRN PRN Reason: NAUSEA Last Admin: 11/11/18 18:15 Dose: 4 mg Pantoprazole Sodium (Protonix Iv*) 40 mg IV 0800,2000 [facility] Last Admin: 11/17/18 08:36 Dose: 40 mg Pharmacy Profile Note (Nicotine Patch Removal Note*) 1 note FOLLOW UP 2100 [facility] Last Admin: 11/16/18 20:57 Dose: 1 note Polyethylene Glycol/Electrolytes (Miralax*) 17 gm PO 0800,2100 [facility] Last Admin: 11/17/18 08:41 Dose: Not Given Senna (Senokot 8.6 Mg Tab*) 1 tab PO BEDTIME PRN PRN Reason: CONSTIPATION Sevelamer Carbonate (Renvela Tab*) 1,600 mg PO TID WITH MEALS [facility] Last Admin: 11/17/18 09:21 Dose: 1,600 mg Sodium Bicarbonate (Sodium Bicarbonate (Antacid)*) 650 mg PO AC [facility] Last Admin: 11/17/18 08:34 Dose: 650 mg Sucralfate (Carafate*) 1 gm PO QID [facility] Last Admin: 11/16/18 20:14 Dose: 1 gm Vital Signs - 8 hr 11/17/18 11/17/18 11/17/18 04:28 08:12 08:45 Temperature 97.5 F 98.3 F Pulse Rate 75 70 Respiratory 20 16 16 Rate Blood Pressure 160/65 165/73 (mmHg) O2 Sat by Pulse 96 97 Oximetry Oxygen Devices in Use Now: None Appearance: Middle age white male laying in bed, appearing in NAD Eyes: No Scleral Icterus, PERRLA Ears/Nose/Mouth/Throat: Mucous Membranes Moist Neck: NL Appearance and Movements; NL JVP Respiratory: Symmetrical Chest Expansion and Respiratory Effort, Clear to Auscultation Cardiovascular: NL Sounds; No Murmurs; No JVD, RRR Abdominal: - - abd soft, nontender, nondistended; no CVA tenderness Extremities: No Edema, No Clubbing, Cyanosis Skin: No Rash or Ulcers Neurological: Alert and Oriented x 3, NL Muscle Strength and Tone, - - not tremulous Result Diagrams: 11/15/18 10:12 11/17/18 06:31 Additional Lab and Data: Lab Results Microbiology and Other Data: Microbiology Assess/Plan/Problems-Billing Assessment: Mr. Michaud is a 58 yo M with PMH of HTN and DM2 who presented to the ED with c/o N/V and was found to have acute renal failure which is worsening. - Patient Problems (1) Acute renal failure Current Visit: Yes Status: Acute Comment: - Thought to be due to ATN 2/2 hypovolemia initially, however continues to worsen and this is likely not the etiology - Renal U/S at admission normal, FENa 2.2% indicating intra-renal source - IVF previously stopped due to hypoxia, thought to be due to fluid overload, given lasix yesterday - Dr. Sage recommends canceling TDC placement - Renal biopsy performed 11/16, results pending - repeat 24hr protein collection pending - Continue Buffering with Bicarbonate and bicitra - Phosphate to 6.6 today, likely due to food from family; starting sevelamer per Dr. Sage's recommendation - Making approximately .9mg/kg/hr urine - Cr minimally increased today but beginning to plateau (2) Nausea and vomiting Current Visit: Yes Status: Acute Code(s): R11.2 - NAUSEA WITH VOMITING, UNSPECIFIED SNOMED Code(s): 17310039 Comment: - Unclear how long this has been going on; patient reports months of N/V, but states it has gotten much worse in the last 3 weeks - States it is generally brought on by GERD and coughing. - Appreciate GI consult - Gastric emptying study unremarkable, EGD shows severe erosive esophagitis - Continue pantoprazole, Zofran - N/V has resolved (3) Diabetes Current Visit: Yes Status: Acute Code(s): E11.9 - TYPE 2 DIABETES MELLITUS WITHOUT COMPLICATIONS SNOMED Code(s): 32709622 Comment: - A1c 7.8% - Hold metformin - Continue Lispro SS - Good Control (4) HTN (hypertension) Current Visit: Yes Status: Acute Code(s): I10 - ESSENTIAL (PRIMARY) HYPERTENSION SNOMED Code(s): 52385149 Comment: - Hypertensive to 190s yesterday, reduced to 160s today - Hold lisinopril in setting of renal failure - Continue amlodipine, Hydralazine po TID, prn IV hydralazine for SBP>170 - will start metoprolol if hypertension persists (5) Right rib fracture Current Visit: Yes Status: Acute Code(s): S22.31XA - FRACTURE OF ONE RIB, RIGHT SIDE, INIT FOR CLOS FX SNOMED Code(s): 93850669 Comment: - Likely due to coughing spasm - Continue Tylenol (6) Tobacco use Current Visit: Yes Status: Acute Code(s): Z72.0 - TOBACCO USE SNOMED Code( s): 893136386 Comment: - Patient motivated to quit smoking - Continue nicotine patch - Has been vaping a large amount for last several weeks, additionally admits to marijuana use (7) DVT prophylaxis Current Visit: Yes Status: Acute Code(s): Z29.9 - ENCOUNTER FOR PROPHYLACTIC MEASURES, UNSPECIFIED SNOMED Code(s): 712114528 Comment: - Ambulation (8) Full code status Current Visit: Yes Status: Acute Code(s): Z78.9 - OTHER SPECIFIED HEALTH STATUS SNOMED Code(s): 461641407 Comment: Status and Disposition: Inpatient. Anticipate d/c home when medically stable.
[2018-11-17] MEDS: Sucralfate TAB* 1 GM PO SCH ×4 (12:23→22:36)
[2018-11-17] MEDS ORDERED: Nicotine PATCH 21 MG/24 HR* PATCH ONE (16:20)
[2018-11-17] MEDS: Nicotine Patch Removal NOTE FOLLOW UP SCH ×2 (16:22→21:34)
[2018-11-17 22:37] LABS: Urine TP Concentration 101 mg/dL
[2018-11-18 05:39] LABS: BUN/Creatinine Ratio 8.9 (8-20); Calcium 9.8 mg/dL (8.6-10.3); EGFR African American 5.2 (>60); EGFR Non-African American 4.3 (>60)
[2018-11-18] MEDS: Sodium Bicarbonate (ANTACID)* 650 MG TAB PO SCH ×2 (08:09→11:57)
[2018-11-18] MEDS: amLODIPine TAB* 5 MG PO SCH (08:09)
[2018-11-18] MEDS: Docusate CAP* 100 MG PO SCH (08:09)
[2018-11-18] MEDS: hydrALAZINE TAB* 25 MG PO SCH ×2 (08:09→15:07)
[2018-11-18] MEDS: Nicotine PATCH 21 MG/24 HR* PATCH TRANSDERM SCH (08:10)
[2018-11-18] MEDS: Polyethylene Glycol 3350* 17 GM PACKET PO SCH (08:11)
[2018-11-18] MEDS: Pantoprazole IV* 40 MG IV SCH (08:11)
[2018-11-18] MEDS: Insulin LISPRO* 1 UNITS UNIT SUBCUT SCH ×2 (08:11→12:50)
[2018-11-18] MEDS: Sevelamer TAB* 800 MG PO SCH ×2 (09:46→13:17)
[2018-11-18] MEDS: Sodium Citrate/Citric Acid* 15 ML UDC PO SCH ×2 (09:48→15:05)
[2018-11-18] MEDS ORDERED: Metoprolol Succinate XL TAB* 25 MG PO SCH (10:00)
[2018-11-18] MEDS: Sucralfate TAB* 1 GM PO SCH ×2 (11:02→11:57)
[2018-11-18 15:37] VITALS: BP 162/72
--- NOTE | 2018-11-18 23:48 | DS ---
CC: Dr. Sage; Dr. Davey; Dr. Alexandra; Dr. Guy Kasper * DISCHARGE SUMMARY: DATE OF ADMISSION: 11/08/18 DATE OF DISCHARGE: 11/18/18 PROVIDER: SAE Figueredo ATTENDING PHYSICIAN WHILE IN THE HOSPITAL: Dr. Milton Castillo * (dictated by SAE Figueredo). PRIMARY CARE PROVIDERS: Dr. Alexandra, Dr. Guy Kasper. CONSULTING SUBSTANCE ABUSE SPECIALIST: Dr. Sage. CONSULTING SOFT TOP INSTALLER: Dr. Davey. PRIMARY DIAGNOSES: 1. Acute renal failure of unclear etiology. 2. Severe erosive esophagitis. SECONDARY DIAGNOSES: 1. Diabetes mellitus type 2. 2. Hypertension. 3. Tobacco use. PROCEDURES WHILE IN THE HOSPITAL: EGD on 11/12/[address] Davey with findings including grade B erosive esophagitis with negative H. pylori testing. Renal biopsy performed on 11/16/18 and gastric emptying, nuclear medicine test on 11/09/18, impression, normal study. PERTINENT LAB DATA: Initial creatinine is 3.5, peak creatinine 12.47, creatinine on day of discharge 12.16. STUDIES WHILE IN THE HOSPITAL: Renal ultrasound on 11/18/18, normal renal ultrasound exam. No hydronephrosis bilaterally. Abdomen and pelvis CT on 11/11, impression: No CT findings to correlate the patient's symptomatology. Hepatic steatosis with findings of possible early cirrhosis and associated portal hypertension. Cholelithiasis. 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 On date of presentation, he had had 5 episodes of vomiting and was feeling weakness and fatigue. Ultimately, the patient was found to be in acute renal failure with initial creatinine of 3.5. The patient's fractional excretion of sodium was 2.2% indicating intrarenal source and Dr. Sage believed that the patient is presenting with ATN which was secondary to hypovolemia and the patient was given IV fluids. However, ultimately after several days of IV fluids, the patient was still not improving and did develop shortness of breath and some hypoxia and did have some bilateral pleural effusions and needed to be given Lasix then to create euvolemia and still the patient's creatinine continued to rise. The patient still continued during this time to feel improved. He was no longer feeling weak and his abdominal nausea and vomiting was resolved. He was found to have esophagitis on EGD, which is possibly an additional cause of his nausea and vomiting. He was started on pantoprazole. Despite his creatinine continuing to rise, his urine output still remained good and he did not have severe electrolyte abnormalities. He was given phosphate binders due to his phosphate elevating, but was never symptomatic of this and calcium remained normal and his potassium was normal during his entire hospital stay. He was given Bicitra and sodium bicarb during his stay as well. Ultimately, the renal biopsy was performed. On day of discharge, Dr. Sage had preliminary results indicating light chain casts and this was conveyed to the patient by Dr. Sage himself. This will still need further workup in the outpatient setting and Dr. Sage feels he is safe for discharge as his creatinine has downtrended and his urine output has continued to improve. He still remains without electrolyte abnormality. Additionally, during the patient's hospital stay, given his renal failure, his blood pressure was difficult to control. He was given amlodipine and hydralazine, which he still had blood pressures in the 160 to 170 systolic and ultimately I did start metoprolol as his heart rate could tolerate this. Additionally, the patient was given sliding scale lispro during his hospital stay as his home metformin could obviously not be used in the setting of his renal failure. On the day of discharge, the patient is feeling well. He was educated by registered dietitian regarding his needed diet and was also educated by CAP nurse regarding fingersticks and insulin use and the sliding scale. PHYSICAL EXAMINATION: General: Middle-aged white male, lying comfortably in bed, appearing in no acute distress. Head: Normocephalic, atraumatic. Eyes: PERRL. Sclerae anicteric. ENT: Mucous membranes are moist. Lungs: Clear to auscultation throughout. Heart: Regular rate and rhythm without murmurs, rubs , or gallops. Abdomen: Soft, nontender, and nondistended. No suprapubic tenderness. Extremities: No clubbing, cyanosis, or edema. Neuro: Alert and oriented x3. DISCHARGE PLAN: DIET: 2 g potassium diet per Dr. Sage's recommendations. ACTIVITY: Return to normal activity as tolerated. The patient will have very close followup with Dr. Sage. He will have daily CMP. He will be following up in the office with Dr. Sage this week. There is concern for possible multiple myeloma given this testing, but he will need further testing including serum light chains and immunoglobulins specifically arranged by Dr. Sage's office. Additionally, the patient has consultation with Dr. Tiwari in the outpatient setting and will be arranged by Dr. Sage's office should this be necessary. The patient was advised to continue his pantoprazole for 8 total weeks, ultimately discontinuing on 01/07/19 and following up for repeat EGD with Dr. Davey. The patient's primary care provider is Dr. Alexandra; however, he has expressed willing to change to Dr. Guy Kasper and CAP nurse did setup his appointment for him. Upon followup, it will be necessary to eventually have a refill of his pantoprazole to treat his esophagitis. The patient was advised to daily check and then record his blood pressures when he follows up with Dr. Kasper. He can further titrate his blood pressure medications, his hydralazine can still have some more increase for further blood pressure control. He is advised to return to the emergency department if he experiences confusion/change in mental status, decrease in urine output, blood in urine, low back pain, abdominal pain, tachycardia, palpitations, flapping hands, lightheadedness, difficulty breathing, chest pain or blood pressure of 200/100. DISCHARGE MEDICATIONS: New discharge medications: 1. Hydralazine 25 mg p.o. t.i.d. 2. Bicitra 30 mL p.o. t.i.d. with meals. 3. Sodium bicarb 650 mg p.o. with meals. 4. Sevelamer 1600 mg p.o. t.i.d. with meals. 5. Pantoprazole 40 mg p.o. b.i.d. 6. Nicotine patch 21 mg per 24 hour 1 patch transdermally daily, then remove. 7. Metoprolol succinate 25 mg p.o. daily. 8. Insulin lispro 0 to 10 units subcu a.c. and h.s. per sliding scale as directed. 9. Colace 100 mg p.o. b.i.d. Of note, initially the patient was written prescription for 40 mg p.o. daily medication; however, this was adjusted and the above prescription was sent to the pharmacy. The pharmacy and the patient were notified. Continued home medications: 1. Amlodipine 10 mg p.o. daily. 2. Aspirin 81 mg p.o. daily. Discontinued home medications in the setting of renal failure: 1. Metformin. 2. Lisinopril. CONDITION ON DISCHARGE: Fair. DISPOSITION: Home. TIME SPENT: Approximately 40 minutes was spent on this discharge, approximately half this time was spent at the bedside counseling the patient. SAE FIGUEREDO [id number]/[facility] #: [id number] MTDD
--- NOTE | 2018-11-19 16:27 | PN ---
PROGRESS NOTE: DATE OF SERVICE: SUBJECTIVE: I saw Mr. Michaud yesterday just after having a received a phone call from the renal patho logist at [facility]. 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 This is highly suggesti ve of multiple myeloma. I did review the evaluation for this with him and his , which will proba hussain include a bone marrow biopsy. I saw no reason to keep him in the hospital as I will be seeing hi m back in very close followup in the office, and we will be arranging a Hematology consultation very shortly. I did discuss the case with SAE Figueredo. [id number]/[facility] #: [id number]
== END 2018-11-18 16:45 | disposition home or self-care (01) | DRG 469 ==
LOC: ED 12:38 → MED 15:56 → INTOOBSV 11-09 10:46 → OBSVTOIN 11-09 10:46 → MED 11-09 15:27 → SSU 11-09 18:41
PROVIDERS: ADMIT Internal Medicine; ATTEND Internal Medicine
PROC: 0DB98ZX Excision of Duodenum, Via Natural or Artificial Opening Endoscopic, Diagnostic (ICD-10-PCS; principal; 2018-11-12)
DX: N17.9 Acute kidney failure, unspecified (principal); K76.6 Portal hypertension; C90.00 Multiple myeloma not having achieved remission; M84.48XA Pathological fracture, other site, initial encounter for fracture; K20.8 Other esophagitis; E11.9 Type 2 diabetes mellitus without complications; K76.0 Fatty (change of) liver, not elsewhere classified; K74.60 Unspecified cirrhosis of liver; K22.70 Barrett's esophagus without dysplasia; E83.41 Hypermagnesemia; R09.02 Hypoxemia; I10 Essential (primary) hypertension; F17.200 Nicotine dependence, unspecified, uncomplicated; E86.1 Hypovolemia; E83.39 Other disorders of phosphorus metabolism; K59.00 Constipation, unspecified; M54.5 Low back pain; Z79.82 Long term (current) use of aspirin; Z83.3 Family history of diabetes mellitus; Z56.0 Unemployment, unspecified
CPT/HCPCS: 36415; 71045; 71046; 74176; 76775; 78264; 80048; 80053; 81003; 81015; 82550; 82570; 83036; 83605; 83735; 84100; 84133; 84156; 84300; 84484; 85025; 85379; 85610; 85730; 86140; 87040; 87077; 87086; 87798; 88300; 88305; 88329; 93005; 94640; 99156; 99283; A9270-GY; A9541; G0378; J0360; J1940; J2250; J2310; J2405; J2543; J3010